=== PATIENT | female | born 2000 | race Caucasian/White ===

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

== ENCOUNTER 2021-02-13 05:29 | Outpatient (RCR) | payer MEDICAID ==
[~2021-02-13] VITALS: Ht 165 cm; Wt 97.7 kg
[~2021-02-13 05:29] MED LIST changes: +ALPR.25T PO; -ALPR0.254 PO
== END 2021-02-13 08:56 | disposition home or self-care (01) ==
LOC: PREOP 05:29
PROVIDERS: ATTEND Surgery
DX: Z01.812 Encounter for preprocedural laboratory examination (principal); R10.11 Right upper quadrant pain; Z20.822 Contact with and (suspected) exposure to COVID-19
CPT/HCPCS: 87635

== ENCOUNTER 2021-02-15 12:45 | Day surgery (SDC) | payer MEDICAID ==
[~2021-02-15] VITALS: Ht 165 cm; Wt 97.7 kg
[2021-02-15] MEDS ORDERED: LACTATED RINGERS 1,000 ML IV ONE (12:51)
[2021-02-15] MEDS ORDERED: LACTATED RINGERS 1,000 ML IV STA (12:53)
[2021-02-15] MEDS ORDERED: HURRICAINE EXT TUBE (BENZOCAINE) XX PRN (13:00)
[2021-02-15 13:07] VITALS: BP 125/83
[2021-02-15] MEDS ORDERED: proPOfol 200 MG/20 ML (DIPRIVAN) VIAL IV ONE (13:49)
[2021-02-15] MEDS ORDERED: MIDAZOLAM 2 MG/2 ML (VERSED) VIAL ONE (13:49)
--- NOTE | 2021-02-15 13:52 | Progress Note-Pre Operative ---
Pre-Operative Progress Note H&P Reviewed The H&P was reviewed, patient examined and no changes noted. Date Seen by Provider: Feb 15, 2021 Time Seen by Provider: 13:52 Date H&P Reviewed: Feb 15, 2021 Time H&P Reviewed: 13:52 Pre-Operative Diagnosis: epigastric abd pain, gerd WINIFRED BEASLEY DO Feb 15, 2021 13:52
[2021-02-15 14:10] VITALS: BP 141/72
[2021-02-15 14:15] VITALS: BP 146/66
--- NOTE | 2021-02-15 14:19 | Anesthesia-General Post-Op ---
MAC Patient Condition Mental Status/LOC: Same as Preop Cardiovascular: Satisfactory Nausea/Vomiting: Absent Respiratory: Satisfactory Pain: Controlled Complications: Absent Post Op Complications Complications None Follow Up Care/Instructions Patient Instructions None needed. Anesthesiology Discharge Order Discharge Order Patient is doing well, no complaints, stable vital signs, no apparent adverse anesthesia problems. MAIKEL MAN DO Feb 15, 2021 14:19
[2021-02-15] MEDS ORDERED: PANT40TA52 PO (14:27)
[2021-02-15] MEDS ORDERED: SUCR1TAB36 PO (14:27)
--- NOTE | 2021-02-15 14:27 | Discharge Inst-Simple/Standard ---
Discharge Inst-Standard Discharge Medications New, Converted or Re-Newed RX: Transmitted to Pharmacy Patient Instructions/Follow Up Plan of Care/Instructions/FU: 2 weeks Susan Activity as Tolerated: Yes Discharge Diet: Regular Diet (ulcer diet) WINIFRED BEASLEY DO Feb 15, 2021 14:27
[2021-02-15 14:40] VITALS: BP 133/89
[2021-02-15 14:50] VITALS: BP 146/66
--- NOTE | 2021-02-15 18:51 | OPERATIVE REPORT ---
DATE OF SERVICE: 02/15/2021 PREOPERATIVE DIAGNOSES: Gastroesophageal reflux disease, epigastric abdominal pain. POSTOPERATIVE DIAGNOSES: Small hiatal hernia, antral ulcers, reflux esophagitis. SURGEON: Winifred Davis DO ANESTHESIA: Per MDA. ESTIMATED BLOOD LOSS: None. COMPLICATIONS: None. INDICATIONS: The patient is a 20-year-old female who has been having GERD symptoms and epigastric abdominal pain. She understands risks and benefits of procedure and wishes to proceed. Consent was signed in the chart. DESCRIPTION OF PROCEDURE: The patient was taken to the endoscopy suite, placed in left lateral recumbent position. Timeout was performed. Scope was inserted in mouth, down the esophagus, stomach and into the duodenum without difficulty. There were no polyps, masses or ulcerations within the duodenum. Scope was slowly retracted back into the stomach where it was further insufflated. Significant gastritis present with multiple ulcerations present. Biopsies of the antrum were obtained. Scope was retroflexed noting a small hiatal hernia, no other pathology. Scope was returned to its normal position, slowly withdrawn to distal esophagus, changes of reflux esophagitis present, may be slight ulceration even present. Biopsy of the GE junction was obtained. Scope was then slowly retracted back until completely removed, noting no other pathology. The patient tolerated procedure well without any complications. She was taken to recovery room in stable condition. RECOMMENDATIONS: The patient will be on Protonix 40 mg b.i.d. for two weeks and then daily. We will also add Carafate 1 gram four times a day. The patient will return to clinic in two to three weeks to discuss pathology results and see how her symptoms are doing at that time. Job ID: [id number] DocumentID: [id number] Dictated Date: 02/15/2021 15:38:45 Real Estate Office Manager Date: 02/15/2021 18:51:02 Dictated By: WINIFRED DAVIS DO
== END 2021-02-15 14:50 | disposition home or self-care (01) ==
LOC: ENDO 12:45
PROVIDERS: ATTEND Surgery
DX: K29.50 Unspecified chronic gastritis without bleeding (principal); K21.00 Gastro-esophageal reflux disease with esophagitis, without bleeding; K25.9 Gastric ulcer, unspecified as acute or chronic, without hemorrhage or perforation; E66.01 Morbid (severe) obesity due to excess calories; K44.9 Diaphragmatic hernia without obstruction or gangrene; Z79.899 Other long term (current) drug therapy; Z79.51 Long term (current) use of inhaled steroids; Z79.890 Hormone replacement therapy; J45.909 Unspecified asthma, uncomplicated; Z90.49 Acquired absence of other specified parts of digestive tract; Z68.35 Body mass index [BMI] 35.0-35.9, adult

== ENCOUNTER 2021-06-24 00:06 | Emergency (ER) | payer MEDICAID ==
[~2021-06-24] VITALS: Ht 165 cm; Wt 94.0 kg
--- NOTE | 2021-06-24 00:55 | ED General ---
General Chief Complaint: Psych/Social Disorder Stated Complaint: L ARM LAC Nursing Triage Note: PT AMB TO ER WITH C/O L WRIST INJURY DUE TO CUTTING/ SELF HARM Source of Information: Patient Exam Limitations: No Limitations History of Present Illness Date Seen by Provider: Jun 24, 2021 Time Seen by Provider: 00:43 Initial Comments Here with report laceration to the left wrist after cutting herself with a scalpel. She has a long history of cutting and cut a little deep tonight. She denies suicide intent or suicidal ideations. Does have support with counselor and friends. She lives at the [facility] on [address]. Denies other injury. Unknown last tetanus. Timing/Duration: 1-3 Hours Severity: Mild Associated Systoms: No Weakness Allergies and Home Medications Allergies Coded Allergies: albuterol (Verified Allergy, Severe, DROPS O2 LEVEL, INCREASED HR, 06/03/18) Patient Home Medication List Home Medication List Reviewed: Yes Pantoprazole Sodium (Pantoprazole Sodium) 40 Mg Tablet.dr, 40 MG PO BID Prescribed by: WINIFRED BEASLEY on 02/15/21 142 Sucralfate (Carafate) 1 Gm Tablet, 1 GM PO QID Prescribed by: WINIFRED BEASLEY on 02/15/21 142 Review of Systems Review of Systems Constitutional: see HPI; No chills, No fever Respiratory: no symptoms reported Cardiovascular: no symptoms reported Skin: see HPI; No change in color; lesions Psychiatric/Neurological: Emotional Problems; Denies Numbness, Denies Paresthesia Past Xpgnpku-Afghjb-Gpllpj Hx Patient Social History Tobacco Use?: No Substance use?: No Alcohol Use?: No Pt feels they are or have been: No Immunizations Up To Date Tetanus Booster (TDap): Unknown PED Vaccines UTD: Yes Influenza Vaccine Up-to-Date: Yes; Up-to-Date First/Initial COVID19 Vaccinat: 08/10 Second COVID19 Vaccination Evan: 09/10 COVID19 Vaccine Tablet Repair: ELEN Seasonal Allergies Seasonal Allergies: Yes Past Medical History Surgery/Hospitalization HX: DEPRESSION, ANXIETY, ASTHMA Surgeries: Yes (Bilat knees, left hand; EGD) Orthopedic Respiratory: Yes Asthma Cardiac: No Neurological: Yes Headaches /Migraines Last Menstrual Period: Jun 04, 2021 Reproductive Disorders: No Female Reproductive Disorders: Denies Sexually Transmitted Disease: No HIV/AIDS: No Genitourinary: No Gastrointestinal: Yes Gastroesophageal Reflux, Hiatal Hernia, Ulcer, Gall Bladder Disease Musculoskeletal: Yes (KNEES AND HAND SURGERY) Endocrine: No HEENT: No Loss of Vision: Denies Hearing Impairment: Denies Cancer: No Psychosocial: Yes Sleep Difficulties, Anxiety Integumentary: No Blood Disorders: No Adverse Reaction/Blood Tranf: No (N/A) Family Medical History Reviewed Nursing Family Hx Abdominal aortic aneurysm 19 MOTHER (MATERNAL GREAT GRANDFATHER) Alcoholism 19 FATHER (PARTENAL GRANDFATHER AND FATHER) Arthritis 19 FATHER Asthma 19 MOTHER G8 SISTER Cardiovascular disease 19 FATHER (GRANDFATHER) 19 MOTHER (MATERNAL GRANDFATHER) Cataracts 19 MOTHER (GRANDFATHER) Completed stroke 19 FATHER (GRANDMOTHER) Deafness or hearing loss Diabetes mellitus 19 MOTHER (GRANDFATHER) Drug abuse 19 FATHER (FATHER) Glaucoma 19 FATHER (GRANDFATHER) Hypercholesterolemia 19 FATHER (GRANDMOTHER) Hypertension 19 MOTHER (AUNTS) Kidney disease 19 MOTHER (GRANDFATHER) Myocardial infarction 19 FATHER (GRANDFATHER) 19 MOTHER (GREAT GRANDPARENTS) Respiratory disorder 19 FATHER (GRANDFATHER) Thyroid disease 19 MOTHER Tuberculosis 19 FATHER (GRANDFATHER) Physical Exam Vital Signs Vital Signs - First Documented 06/24/21 00:15 Temp 37.0 Pulse 79 Resp 17 B/P (MAP) 140/85 (103) Pulse Ox 98 O2 Delivery Room Air Capillary Refill : Less Than 3 Seconds Height, Weight, BMI Height: 5'5.00" Weight: 200lbs. 0.0oz. 90.353467cj; 34.00 BMI Method:Stated General Appearance: No Apparent Distress, WD/WN Respiratory: Lungs Clear, Normal Breath Sounds Cardiovascular: Regular Rate, Rhythm, No Murmur Neurologic/Psychiatric: Alert, Oriented x3, Depressed Affect Skin: Normal Color, Warm/Dry, Other (Laceration transverse across left wrist approximately 5 cm and superficial but will need repair with bleeding controlled.) Procedures/Interventions Wound Location: Upper Extremities Other Wound Location Left wrist Wound Length (cm): 4.5 Wound's Depth, Shape: superficial Wound Explored: contaminated Irrigated w/ Saline (ccs): 50 Betadine Prep?: Yes Anesthesia: 1% Lidocaine Volume Anesthetic (ccs): 4 Wound Debrided: minimal Suture: Ethlion Suture Size: 5-0 Number of Sutures: 8 Layer Closure?: 1 Number Deep Layer Sutures: 0 Sterile Dressing Applied?: Yes Progress Cleaned and anesthetized. Closed with simple interrupted sutures. Cover with antibiotic ointment and dressing. Tolerated procedure well with no complication s. Progress/Results/Core Measures Suspected Sepsis SIRS Temperature: Pulse: 79 Respiratory Rate: 17 Blood Pressure 140 /85 Mean: 103 Results/Orders My Orders Orders - FADIA CHAVARRIA MD Lidocaine 1% Inj 20 Ml (Xylocaine 1% Inj (06/24/21 01:00) Dipht,Pertuss(Acell),Tet Adult (Boostrix (06/24/21 01:00) Vital Signs/I&O 06/24/21 00:15 Temp 37.0 Pulse 79 Resp 17 B/P (MAP) 140/85 (103) Pulse Ox 98 O2 Delivery Room Air Capillary Refill : Less Than 3 Seconds Blood Pressure Mean: 103 Progress Note : Progress Note Seen and evaluated. Tetanus updated. Laceration repair. I did talk with her at length about safety at home. I do not believe she is suicidal and she has good support. We did discuss cutting and other alternatives which she knows and understands. Discharged home with return precautions. Patient verbalized understanding of instructions and agreement with plan. She has support person with her who is also one of our techs. 0125: Suture complete. Patient continues to deny suicidal ideations and I do believe she has good support. Discharged home. Departure Impression Primary Impression: Laceration of left wrist Qualified Codes: S61.512A - Laceration without foreign body of left wrist, initial encounter Disposition: 01 HOME, SELF-CARE Condition: Improved Departure-Patient Inst. Decision time for Depature: 01:25 Referrals: [facility] (PCP/Family) Primary Care Physician Patient Instructions: Laceration Repair With Stitches ED Add. Discharge Instructions: All discharge instructions reviewed with patient and/or family. Voiced understanding. Sutures out in 7 to 10 days. Use antibiotic ointment and dressing over wound changing it twice daily. You may wash the wound gently and pat it dry but do not soak the wound in any body of water. Return for worse pain, swelling, red streaks up the arm, foul-smelling drainage or other concerns as needed. Return for thoughts of self-harm or uncontrolled depression. Follow-up with your counselor on Friday. Use all other supportive measures including returning to the emergency department if needed instead of cutting behavior. FADIA CHAVARRIA MD Jun 24, 2021 00:55
[2021-06-24] MEDS ORDERED: TETANUS,DIPTH,PERTUSS P/F (BOOSTRIX) 0.5 ML VIAL IM ONE (01:00)
[2021-06-24] MEDS ORDERED: LIDOCAINE 1% INJ 20 ML 20 ML VIAL INJ ONE (01:00)
[2021-06-24 01:35] VITALS: BP 132/81
== END 2021-06-24 01:36 | disposition home or self-care (01) ==
LOC: EDUNIT# 00:06 → ER 00:08
DX: S61.512A Laceration without foreign body of left wrist, initial encounter (principal); J45.909 Unspecified asthma, uncomplicated; K21.9 Gastro-esophageal reflux disease without esophagitis; Z23 Encounter for immunization; Z79.899 Other long term (current) drug therapy; X78.8XXA Intentional self-harm by other sharp object, initial encounter
CPT/HCPCS: 12002; 12032; 90715

== ENCOUNTER 2021-07-15 05:53 | Emergency (ER) | payer MEDICAID ==
[~2021-07-15] VITALS: Ht 165 cm; Wt 97.5 kg
[2021-07-15] MEDS ORDERED: ALPR0.5T7 (06:13)
[2021-07-15] MEDS ORDERED: FLUO10CA33 (06:13)
[2021-07-15] MEDS ORDERED: IBUP-1780 PO (06:23)
[2021-07-15] MEDS ORDERED: BUTA-249 PO (06:23)
--- NOTE | 2021-07-15 06:23 | ED Headache ---
General Chief Complaint: Head/Cervical Problems Stated Complaint: RAMOS Nursing Triage Note: C/O RIGHT SIDED HEADACHE X1 DAY. REPORTS SIMILIAR TO PREVIOUS HEADACHES. Allergies and Home Medications Allergies Coded Allergies: albuterol (Verified Allergy, Severe, DROPS O2 LEVEL, INCREASED HR, 06/03/18) Patient Home Medication List Alprazolam (Alprazolam) 0.5 Mg Tablet, (Reported) Entered as Reported by: ALDO CAZARES on 07/15/21612 Last Action: New Order Fluoxetine HCl (Fluoxetine HCl) 10 Mg Capsule, (Reported) Entered as Reported by: ALDO CAZARES on 07/15/21612 Last Action: New Order Discontinued Medications Pantoprazole Sodium (Pantoprazole Sodium) 40 Mg Tablet.dr, 40 MG PO BID Discontinued Reason: No Longer Taking Prescribed by: WINIFRED BEASLEY on 02/15/211426 Last Action: Discontinued Sucralfate (Carafate) 1 Gm Tablet, 1 GM PO QID Discontinued Reason: No Longer Taking Prescribed by: WINIFRED BEASLEY on 02/15/211426 Last Action: Discontinued Past Ntcqxsj-Ikcupa-Mxbgeg Hx Patient Social History Tobacco Use?: No Substance use?: No Alcohol Use?: No Pt feels they are or have been: No Immunizations Up To Date Tetanus Booster (TDap): Unknown PED Vaccines UTD: Yes First/Initial COVID19 Vaccinat: 08/10 Second COVID19 Vaccination Evan: 09/10 COVID19 Vaccine Senior Quality Analyst: ELEN Seasonal Allergies Seasonal Allergies: Yes Past Medical History Surgery/Hospitalization HX: DEPRESSION, ANXIETY, ASTHMA, HEADACHES, GERD Surgeries: Yes (Bilat knees, left hand; EGD) Orthopedic Respiratory: Yes Asthma Cardiac: No Neurological: Yes Headaches /Migraines Reproductive Disorders: No Female Reproductive Disorders: Denies Sexually Transmitted Disease: No HIV/AIDS: No Genitourinary: No Gastrointestinal: Yes Gastroesophageal Reflux, Hiatal Hernia, Ulcer, Gall Bladder Disease Musculoskeletal: Yes (KNEES AND HAND SURGERY) Endocrine: No HEENT: No Loss of Vision: Denies Hearing Impairment: Denies Cancer: No Psychosocial: Yes Sleep Difficulties, Anxiety Integumentary: No Blood Disorders: No Adverse Reaction/Blood Tranf: No (N/A) Family Medical History Abdominal aortic aneurysm 19 MOTHER (MATERNAL GREAT GRANDFATHER) Alcoholism 19 FATHER (PARTENAL GRANDFATHER AND FATHER) Arthritis 19 FATHER Asthma 19 MOTHER G8 SISTER Cardiovascular disease 19 FATHER (GRANDFATHER) 19 MOTHER (MATERNAL GRANDFATHER) Cataracts 19 MOTHER (GRANDFATHER) Completed stroke 19 FATHER (GRANDMOTHER) Deafness or hearing loss Diabetes mellitus 19 MOTHER (GRANDFATHER) Drug abuse 19 FATHER (FATHER) Glaucoma 19 FATHER (GRANDFATHER) Hypercholesterolemia 19 FATHER (GRANDMOTHER) Hypertension 19 MOTHER (AUNTS) Kidney disease 19 MOTHER (GRANDFATHER) Myocardial infarction 19 FATHER (GRANDFATHER) 19 MOTHER (GREAT GRANDPARENTS) Respiratory disorder 19 FATHER (GRANDFATHER) Thyroid disease 19 MOTHER Tuberculosis 19 FATHER (GRANDFATHER) Physical Exam Vital Signs Vital Signs - First Documented 07/15/21 06:08 Temp 36.2 Pulse 79 Resp 16 B/P (MAP) 136/95 (109) Pulse Ox 98 O2 Delivery Room Air Capillary Refill : Less Than 3 Seconds Height, Weight, BMI Height: 5'5.00" Weight: 200lbs. 0.0oz. 90.959643by; 35.00 BMI Method:Stated Procedures/Interventions Suture Size: 5-0 Progress/Results/Core Measures Results/Orders Vital Signs/I&O 07/15/21 06:08 Temp 36.2 Pulse 79 Resp 16 B/P (MAP) 136/95 (109) Pulse Ox 98 O2 Delivery Room Air Blood Pressure Mean: 109 Departure Impression Primary Impression: Chronic daily headache Disposition: 01 HOME, SELF-CARE Condition: Stable Departure-Patient Inst. Decision time for Depature: 06:22 Referrals: [facility] (PCP/Family) Primary Care Physician Patient Instructions: Headache, Adult (DC) Add. Discharge Instructions: HOME, REST LOTS OF CLEAR LIQUIDS FOLLOW UP WITH DR. MEDINA THIS WEEK FOR FURTHER CARE All discharge instructions reviewed with patient and/or family. Voiced understanding. Scripts Ibuprofen (Ibuprofen) 800 Mg Tablet 800 MG PO Q6H PRN for PAIN-MILD, #20 TAB Prov: TATIANA BAHENAA K DO 07/15/21 Butalb/Acetaminophen/Caffeine (Esgic 50-325-40 mg Tablet) 1 Each Tablet 1-2 EACH PO Q6, #12 TAB Prov: SHRUTITATIANAA K DO 07/15/21 SHRUTITATIANAA K DO Jul 15, 2021 06:23
[2021-07-15] MEDS ORDERED: KETOROLAC 60 MG/2 ML VIAL IM ONE (06:30)
[2021-07-15 06:37] VITALS: BP 124/81
[2021-07-16] MEDS ORDERED: ONDA4TAB11 SL ×2 (02:00→02:53)
== END 2021-07-15 06:39 | disposition home or self-care (01) ==
LOC: EDUNIT# 05:53 → ER 05:57
DX: R51.9 Headache, unspecified (principal); F41.9 Anxiety disorder, unspecified; F32.9 Major depressive disorder, single episode, unspecified; K21.9 Gastro-esophageal reflux disease without esophagitis; J45.909 Unspecified asthma, uncomplicated; Z79.899 Other long term (current) drug therapy
CPT/HCPCS: 99284

== ENCOUNTER 2021-07-15 23:45 | Emergency (ER) | payer MEDICAID ==
[~2021-07-15] VITALS: Ht 165 cm; Wt 97.5 kg
[~2021-07-15 23:45] MED LIST changes: +ALPR0.5T7; +BUTA-249 PO; +FLUO10CA33; +IBUP-1780 PO
[2021-07-16] MEDS ORDERED: PROMETHAZINE INJ 25 MG/ML (PHENERGAN) AMP IVP ONE (01:45)
[2021-07-16] MEDS ORDERED: KETOROLAC 30 MG/ML VIAL IVP ONE (01:45)
[2021-07-16] MEDS ORDERED: LACTATED RINGERS 1,000 ML IV ONE (01:45)
[2021-07-16] MEDS ORDERED: ONDA4TAB11 SL ×2 (02:00→02:53)
--- NOTE | 2021-07-16 02:01 | ED Headache ---
General Chief Complaint: Head/Cervical Problems Stated Complaint: HEADACHE Nursing Triage Note: PT AMB TO ED BY POV WITH C/O RAMOS. PT WAS SEEN AND TREATED HERE THIS AM FOR RAMOS. PT WENT TO WORK AND RAMOS CONTINUED SO SHE CAME IN. PT TOOK IBUPROFEN AT 1700 WITH NO RELIEF.. Source: patient Exam Limitations: no limitations History of Present Illness Date Seen by Provider: Jul 16, 2021 Time Seen by Provider: 01:40 Initial Comments This 21-year-old young lady presents to the emergency room with persistent headache throughout the day today accompanied by nausea. She has some associated stuttering of her speech which fatigues as she talks more. She also reports feeling lightheaded upon standing. She was seen in the ER yesterday and treated with a Toradol injection. Patient was noted to be smiling and giggling in conversation. Stated pain level was 8/10 initially. Allergies and Home Medications Allergies Coded Allergies: albuterol (Verified Allergy, Severe, DROPS O2 LEVEL, INCREASED HR, 06/03/18) Patient Home Medication List Home Medication List Reviewed: Yes Alprazolam (Alprazolam) 0.5 Mg Tablet, (Reported) Entered as Reported by: ALDO CAZARES on 07/15/21612 Butalb/Acetaminophen/Caffeine (Esgic 50-325-40 mg Tablet) 1 Each Tablet, 1-2 EACH PO Q6 Prescribed by: JOSE ANTONIO BAHENA on 07/15/21622 Fluoxetine HCl (Fluoxetine HCl) 10 Mg Capsule, (Reported) Entered as Reported by: ALDO CAZARES on 07/15/21612 Ibuprofen (Ibuprofen) 800 Mg Tablet, 800 MG PO Q6H PRN for PAIN-MILD Prescribed by: JOSE ANTONIO BAHENA on 07/15/21622 Ondansetron (Ondansetron Odt) 4 Mg Tab.rapdis, 4 MG SL Q4H PRN for NAUSEA/VOMITING Prescribed by: SADA PETERS on 07/16/21 0253 Discontinued Medications Pantoprazole Sodium (Pantoprazole Sodium) 40 Mg Tablet.dr, 40 MG PO BID Discontinued Reason: No Longer Taking Prescribed by: WINIFRED BEASLEY on 02/15/21 142 Sucralfate (Carafate) 1 Gm Tablet, 1 GM PO QID Discontinued Reason: No Longer Taking Prescribed by: WINIFRED BEASLEY on 02/15/211426 Review of Systems Review of Systems Constitutional: no symptoms reported Eyes: No Symptoms Reported Ears, Nose, Mouth, Throat: no symptoms reported Respiratory: no symptoms reported Cardiovascular: no symptoms reported Gastrointestinal: see HPI Genitourinary: no symptoms reported : No Musculoskeletal: no symptoms reported Skin: no symptoms reported Psychiatric/Neurological: See HPI Past Kzczzaw-Vfkgfj-Kjejok Hx Patient Social History Tobacco Use?: No Use of E-Cig and/or Vaping dev: No Substance use?: No Alcohol Use?: No Pt feels they are or have been: No Immunizations Up To Date Tetanus Booster (TDap): Unknown PED Vaccines UTD: Yes Influenza Vaccine Up-to-Date: Yes; Up-to-Date First/Initial COVID19 Vaccinat: 08/10 Second COVID19 Vaccination Evan: 09/10 Third COVID19 Vaccination Date: 05/18/21 COVID19 Vaccine Interventional Radiology Technologist: Laura Sapiens Seasonal Allergies Seasonal Allergies: Yes Past Medical History Surgery/Hospitalization HX: DEPRESSION, ANXIETY, ASTHMA, HEADACHES, GERD Surgeries: Yes (Bilat knees, left hand; EGD) Orthopedic Respiratory: Yes Asthma Cardiac: No Neurological: Yes Headaches /Migraines Last Menstrual Period: Jul 05, 2021 Reproductive Disorders: No Female Reproductive Disorders: Denies Sexually Transmitted Disease: No HIV/AIDS: No Genitourinary: No Gastrointestinal: Yes Gastroesophageal Reflux, Hiatal Hernia, Ulcer, Gall Bladder Disease Musculoskeletal: Yes (KNEES AND HAND SURGERY) Endocrine: No HEENT: No Loss of Vision: Denies Hearing Impairment: Denies Cancer: No Psychosocial: Yes Sleep Difficulties, Anxiety Integumentary: No Blood Disorders: No Adverse Reaction/Blood Tranf: No (N/A) Family Medical History Abdominal aortic aneurysm 19 MOTHER (MATERNAL GREAT GRANDFATHER) Alcoholism 19 FATHER (PARTENAL GRANDFATHER AND FATHER) Arthritis 19 FATHER Asthma 19 MOTHER G8 SISTER Cardiovascular disease 19 FATHER (GRANDFATHER) 19 MOTHER (MATERNAL GRANDFATHER) Cataracts 19 MOTHER (GRANDFATHER) Completed stroke 19 FATHER (GRANDMOTHER) Deafness or hearing loss Diabetes mellitus 19 MOTHER (GRANDFATHER) Drug abuse 19 FATHER (FATHER) Glaucoma 19 FATHER (GRANDFATHER) Hypercholesterolemia 19 FATHER (GRANDMOTHER) Hypertension 19 MOTHER (AUNTS) Kidney disease 19 MOTHER (GRANDFATHER) Myocardial infarction 19 FATHER (GRANDFATHER) 19 MOTHER (GREAT GRANDPARENTS) Respiratory disorder 19 FATHER (GRANDFATHER) Thyroid disease 19 MOTHER Tuberculosis 19 FATHER (GRANDFATHER) Physical Exam Vital Signs Vital Signs - First Documented 07/16/21 00:04 Temp 37.0 Pulse 83 Resp 18 B/P (MAP) 123/85 (98) Pulse Ox 100 O2 Delivery Room Air Capillary Refill : Less Than 3 Seconds Height, Weight, BMI Height: 5'5.00" Weight: 200lbs. 0.0oz. 90.040377dm; 35.00 BMI Method:Stated General Appearance: WD/WN, no apparent distress HEENT: PERRL/EOMI, normal ENT inspection Neck: normal inspection Cardiovascular: regular rate, rhythm, no edema, no murmur Respiratory: normal breath sounds, no respiratory distress Extremities: normal inspection Psychiatric: alert, oriented x 3 Crainal Nerves: normal hearing, PERRL, abnormal speech (Stuttering of the speech is fatigable the more she talks, perhaps voluntary) Coordination/Gait: normal finger to nose Motor/Sensory: no motor deficit, no sensory deficit Skin: normal color, warm/dry Procedures/Interventions Suture Size: 5-0 Progress/Results/Core Measures Results/Orders Lab Results Laboratory Tests Test 07/16/21 02:05 Range/Units Sodium Level 143 135-145 MMOL/L Potassium Level 3.6 3.6-5.0 MMOL/L Chloride Level 107 98-107 MMOL/L Carbon Dioxide Level 23 21-32 MMOL/L Anion Gap 13 5-14 MMOL/L Blood Urea Nitrogen 15 7-18 MG/DL Creatinine 0.92 0.60-1.30 MG/DL Estimat Glomerular Filtration Rate 78 BUN/Creatinine Ratio 16 Glucose Level 101 70-105 MG/DL Calcium Level 9.3 8.5-10.1 MG/DL Serum Test, Qualitative NEGATIVE NEGATIVE My Orders Orders - SADA COLBY MD Ed Iv/Invasive Line Start (07/16/21 01:44) Lactated Ringers (Lr 1000 Ml Iv Solution (07/16/21 01:45) Ketorolac Injection (Toradol Injection) (07/16/21 01:45) Promethazine Injection (Phenergan Injec (07/16/21 01:45) Basic Metabolic Panel (07/16/21 01:44) Hcg,Qualitative Serum (07/16/21 01:44) Medications Given in ED Vital Signs/I&O 07/16/21 07/16/21 00:04 02:54 Temp 37.0 Pulse 83 79 Resp 18 16 B/P (MAP) 123/85 (98) 122/79 Pulse Ox 100 100 O2 Delivery Room Air Room Air Blood Pressure Mean: 98 Progress Progress Note : Progress Note Patient was treated with IV fluids, Phenergan, and Toradol with improvement of symptoms. Departure Impression Primary Impression: Recurrent headache Additional Impressions: Nausea Lightheadedness Disposition: 01 HOME, SELF-CARE Condition: Improved Departure-Patient Inst. Decision time for Depature: 01:59 Referrals: [facility] (PCP/Family) Primary Care Physician Patient Instructions: Headache, Adult (DC) Add. Discharge Instructions: Drink plenty of clear liquids to stay well-hydrated. For further headache treatment you may take ibuprofen up to 600 mg every 6 hours as needed and/or Tylenol (acetaminophen) up to 1000 mg every 6 hours as needed. Use Zofran (ondansetron) as prescribed for nausea and vomiting. Follow-up with your primary care provider to discuss further headache treatment and evaluation. Return to the ER if you have worsening symptoms. Call with questions or concerns. All discharge instructions reviewed with patient and/or family. Voiced understanding. Scripts Ondansetron (Ondansetron Odt) 4 Mg Tab.rapdis 4 MG SL Q4H PRN for NAUSEA/VOMITING, #10 TAB Prov: SADA COLBY MD 07/16/21 SADA COLBY MD Jul 16, 2021 02:01
[2021-07-16 02:22] LABS: POTASSIUM 3.6 MMOL/L (3.6-5.0)
[2021-07-16 02:23] LABS: CALCIUM 9.3 MG/DL (8.5-10.1)
[2021-07-16 02:27] LABS: CREATININE SERUM 0.92 MG/DL (0.60-1.30)
[2021-07-16 02:54] VITALS: BP 122/79
== END 2021-07-16 02:54 | disposition home or self-care (01) ==
LOC: EDUNIT# 23:45 → ER 23:46
DX: R51.9 Headache, unspecified (principal); R42 Dizziness and giddiness; F41.9 Anxiety disorder, unspecified; F32.9 Major depressive disorder, single episode, unspecified; K21.9 Gastro-esophageal reflux disease without esophagitis; J45.909 Unspecified asthma, uncomplicated; Z79.899 Other long term (current) drug therapy; Z32.02 Encounter for pregnancy test, result negative
CPT/HCPCS: 36415; 80048; 84703

== ENCOUNTER 2021-07-18 14:21 | Emergency (ER) | payer MEDICAID ==
[~2021-07-18] VITALS: Ht 165 cm; Wt 99.0 kg
[~2021-07-18 14:21] MED LIST changes: +ONDA4TAB11 SL
[2021-07-18 15:10] LABS: BASOPHILS # (AUTO) 0.1 10^3/uL (0.0-0.1); BASOPHILS % (AUTO) 1 % (0-10); EOSINOPHILS # (AUTO) 0.1 10^3/uL (0.0-0.3); EOSINOPHILS % (AUTO) 1 % (0-10); HEMATOCRIT 41 % (35-52); HEMOGLOBIN 13.4 g/dL (11.5-16.0); LYMPHOCYTES # (AUTO) 1.7 X 10^3 (1.0-4.0); LYMPHOCYTES % (AUTO) 18 % (12-44); MEAN CORPUSCULAR HEMOGLOBIN 28 pg (25-34); MEAN CORPUSCULAR HGB CONC 33 g/dL (32-36); MEAN CORPUSCULAR VOLUME 86 fL (80-99); MEAN PLATELET VOLUME 11.3 fL (9.0-12.2); MONOCYTES # (AUTO) 0.5 X 10^3 (0.0-1.0); MONOCYTES % (AUTO) 5 % (0-12); NEUTROPHILS # (AUTO) 7.4 X 10^3 (1.8-7.8); NEUTROPHILS % (AUTO) 75 % (42-75); PLATELET COUNT 365 10^3/uL (130-400); WHITE BLOOD COUNT 9.9 10^3/uL (4.3-11.0)
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
[2021-07-18 15:19] LABS: ALBUMIN 4.5 GM/DL (3.2-4.5); POTASSIUM 3.7 MMOL/L (3.6-5.0)
[2021-07-18 15:21] LABS: CALCIUM 9.4 MG/DL (8.5-10.1)
[2021-07-18 15:22] LABS: TOTAL PROTEIN 8.2 GM/DL (6.4-8.2)
[2021-07-18 15:24] LABS: BILIRUBIN,TOTAL 0.4 MG/DL (0.1-1.0)
[2021-07-18 15:26] LABS: CREATININE SERUM 0.84 MG/DL (0.60-1.30)
--- NOTE | 2021-07-18 15:29 | Diagnostic Imaging Report ---
PROCEDURE: CT head without contrast. TECHNIQUE: Multiple contiguous axial images were obtained through the brain without the use of intravenous contrast. Auto Exposure Controls were utilized during the CT exam to meet ALARA standards for radiation dose reduction. INDICATION: Difficulty speaking and writing. COMPARISON: No prior studies are available for comparison. FINDINGS: Ventricles and sulci are within normal limits. No sulcal effacement or midline shift is identified. No acute intra-axial or extra-axial hemorrhage is detected. Cisterns are patent. Visualized paranasal sinuses are clear. IMPRESSION: No acute intracranial process is detected. Dictated by: Dictated on workstation # [id number]
[2021-07-18] MEDS ORDERED: HOLD METFORMIN - RECEIVED CONTRAST 20 ML VIAL IV SCH (15:45)
[2021-07-18] MEDS ORDERED: IOHEXOL 350 MG/ML 100 ML (OMNIPAQUE 350) VIAL IV ONE (15:45)
[2021-07-18] MEDS ORDERED: diphenhydrAMINE 50 MG/ML INJ (BENADRYL) IV ONE (15:45)
[2021-07-18] MEDS ORDERED: METOCLOPRAMIDE INJ 10 MG/2 ML (REGLAN) IVP ONE (15:45)
[2021-07-18] MEDS ORDERED: NS 100 ML (IVPB) BAG IV ONE (15:45)
[2021-07-18] MEDS ORDERED: KETOROLAC 30 MG/ML VIAL IVP ONE (15:45)
[2021-07-18 15:55] LABS: HCG,QUALITATIVE URINE NEGATIVE (NEGATIVE)
[2021-07-18 16:03] LABS: AMPHETAMINE SCREEN, URINE NEGATIVE (NEGATIVE); BARBITURATE SCREEN URINE POSITIVE (NEGATIVE); BENZODIAZEPINES SCREEN URINE NEGATIVE (NEGATIVE); CANNABINOID SCREEN, URINE NEGATIVE (NEGATIVE); COCAINE SCREEN URINE NEGATIVE (NEGATIVE); METHADONE STAT NEGATIVE (NEGATIVE); METHAMPHETAMINE SCREEN URINE S NEGATIVE (NEGATIVE); OPIATE SCREEN URINE NEGATIVE (NEGATIVE); OXYCODONE STAT NEGATIVE (NEGATIVE); PROPOXYPHENE STAT NEGATIVE (NEGATIVE); TRICYCLIC ANTIDEPRESSANTS SCRE NEGATIVE (NEGATIVE)
--- NOTE | 2021-07-18 16:38 | Diagnostic Imaging Report ---
PROCEDURE: CT angiography of the head and CT angiography of the neck with and without contrast. TECHNIQUE: Contiguous noncontrast images were obtained from the skull base through the vertex. After intravenous contrast administration, helical CT angiography of the neck was performed. Source data was reformatted into 3D MIP projections. Delayed post contrast acquisition was also obtained. Auto Exposure Controls were utilized during the CT exam to meet ALARA standards for radiation dose reduction. INDICATION: Right weakness. FINDINGS: There is a normal three-vessel branching pattern arising from the aortic arch. The common carotid and internal carotid arteries are widely patent throughout the neck. The vertebral arteries are also widely patent with co-dominance. No intimal abnormality, aneurysm, or stenosis is identified. The anterior, middle, and posterior cerebral arteries are widely patent without filling defect, stenosis, or occlusion. There is no evidence of aneurysm or vascular malformation. No abnormal contrast enhancement is seen in the brain parenchyma. IMPRESSION: Unremarkable CTA of the head and neck without great vessel abnormality detected. Dictated by: Dictated on workstation # [id number]
[2021-07-18 17:38] VITALS: BP 124/81
== END 2021-07-18 17:38 | disposition home or self-care (01) ==
LOC: EDUNIT# 14:21 → ER 14:23
DX: F44.4 Conversion disorder with motor symptom or deficit (principal); G43.909 Migraine, unspecified, not intractable, without status migrainosus; F41.9 Anxiety disorder, unspecified; F32.9 Major depressive disorder, single episode, unspecified; J45.909 Unspecified asthma, uncomplicated; Z79.899 Other long term (current) drug therapy; Z32.02 Encounter for pregnancy test, result negative
CPT/HCPCS: 36415; 70450; 70496; 70498; 80053; 80306; 84703; 85025; 85610; 85730; 93005

== ENCOUNTER 2021-09-20 19:25 | Emergency (ER) | payer MEDICAID ==
[~2021-09-20] VITALS: Ht 165.1 cm; Wt 96.6 kg
--- NOTE | 2021-09-20 19:45 | ED Psychosocial ---
General Chief Complaint: Overdose Stated Complaint: OVERDOSE Source: patient, EMS Exam Limitations: no limitations (NICHOLAS JOHNSON MD) History of Present Illness Date Seen by Provider: Sep 20, 2021 Time Seen by Provider: 19:31 Initial Comments Patient is a 21-year-old female who presents by EMS chief complaint overdose. Patient was found by a friend, admitted that she had "done something bad". Friend noted multiple empty pill bottles. Ambulance was called. Patient states that she has been thinking about suicide for a long time. She last saw her therapist about a week ago. She states she did have a plan in July but someone found her. She has been inpatient at [facility] in the past. She states she has a history of cutting. States that she had multiple triggers this evening. Denies recent illnesses. No current complaints. States she is not suicidal at this moment. EMS brought multiple pill bottles to include recent prescriptions filled on August 29 of 100 mg trazodone tablets #30, 40 mg fluoxetine tablets #30, Prazosin 0.2 mg tablets #30. Patient also had empty pill bottles for ibuprofen, Ativan, older pill bottles of fluoxetine and trazodone. Patient is unsure of how many pills she actually took., She is also not certain of the time of ingestion. EMS did place an NG tube prior to arrival. This was removed at arrival. Timing/Duration: other (unknown) Associated Symptoms: ingestion (suicidal) (NICHOLAS JOHNSON MD) Allergies and Home Medications Allergies Coded Allergies: albuterol (Verified Allergy, Severe, DROPS O2 LEVEL, INCREASED HR, 06/03/18) Patient Home Medication List Home Medication List Reviewed: Yes (NICHOLAS JOHNSON MD) Alprazolam (Alprazolam) 0.5 Mg Tablet, (Reported) Entered as Reported by: ALDO CAZARES on 07/15/21612 Butalb/Acetaminophen/Caffeine (Esgic 50-325-40 mg Tablet) 1 Each Tablet, 1-2 EACH PO Q6 Prescribed by: JOSE ANTONIO BAHENA on 07/15/21622 Fluoxetine HCl (Fluoxetine HCl) 10 Mg Capsule, (Reported) Entered as Reported by: ALDO CAZARES on 07/15/21612 Ibuprofen (Ibuprofen) 800 Mg Tablet, 800 MG PO Q6H PRN for PAIN-MILD Prescribed by: JOSE ANTONIO BAHENA on 07/15/21 0623 Ondansetron (Ondansetron Odt) 4 Mg Tab.rapdis, 4 MG SL Q4H PRN for NAUSEA/VOMITING Prescribed by: SADA PETERS on 07/16/21 0253 Review of Systems Constitutional: see HPI EENTM: no symptoms reported Respiratory: no symptoms reported Cardiovascular: no symptoms reported Gastrointestinal: vomiting Genitourinary: no symptoms reported : No LMP: Sep 12, 2021 Musculoskeletal: no symptoms reported Skin: no symptoms reported Psychiatric/Neurological: Depressed, Emotional Problems (NICHOLAS JOHNSON MD) All Other Systems Reviewed Negative Unless Noted: Yes (NICHOLAS JOHNSON MD) Past Pcrjkpf-Upolhk-Vozkxo Hx Immunizations Up To Date Tetanus Booster (TDap): Unknown PED Vaccines UTD: Yes First/Initial COVID19 Vaccinat: 08/10 Second COVID19 Vaccination Evan: 09/10 Third COVID19 Vaccination Date: 05/18/21 (NICHOLAS JOHNSON MD) Seasonal Allergies Seasonal Allergies: Yes (NICHOLAS JOHNSON MD) Past Medical History Surgery/Hospitalization HX: DEPRESSION, ANXIETY, ASTHMA, HEADACHES, GERD Surgeries: Yes (Bilat knees, left hand; EGD) Orthopedic Respiratory: Yes Asthma Cardiac: No Neurological: Yes Headaches /Migraines Reproductive Disorders: No Female Reproductive Disorders: Denies Sexually Transmitted Disease: No HIV/AIDS: No Genitourinary: No Gastrointestinal: Yes Gastroesophageal Reflux, Hiatal Hernia, Ulcer, Gall Bladder Disease Musculoskeletal: Yes (KNEES AND HAND SURGERY) Endocrine: No HEENT: No Loss of Vision: Denies Hearing Impairment: Denies Cancer: No Psychosocial: Yes Sleep Difficulties, Anxiety Integumentary: No Blood Disorders: No Adverse Reaction/Blood Tranf: No (N/A) (NICHOLAS JOHNSON MD) Family Medical History Abdominal aortic aneurysm 19 MOTHER (MATERNAL GREAT GRANDFATHER) Alcoholism 19 FATHER (PARTENAL GRANDFATHER AND FATHER) Arthritis 19 FATHER Asthma 19 MOTHER G8 SISTER Cardiovascular disease 19 FATHER (GRANDFATHER) 19 MOTHER (MATERNAL GRANDFATHER) Cataracts 19 MOTHER (GRANDFATHER) Completed stroke 19 FATHER (GRANDMOTHER) Deafness or hearing loss Diabetes mellitus 19 MOTHER (GRANDFATHER) Drug abuse 19 FATHER (FATHER) Glaucoma 19 FATHER (GRANDFATHER) Hypercholesterolemia 19 FATHER (GRANDMOTHER) Hypertension 19 MOTHER (AUNTS) Kidney disease 19 MOTHER (GRANDFATHER) Myocardial infarction 19 FATHER (GRANDFATHER) 19 MOTHER (GREAT GRANDPARENTS) Respiratory disorder 19 FATHER (GRANDFATHER) Thyroid disease 19 MOTHER Tuberculosis 19 FATHER (GRANDFATHER) Physical Exam Vital Signs - First Documented 09/20/21 19:28 Pulse 96 Resp 12 B/P (MAP) 118/69 (85) Pulse Ox 100 O2 Delivery Room Air (REED ISABEL) Capillary Refill : (NICHOLAS JOHNSON MD) Height, Weight, BMI Height: 5'5.00" Weight: 200lbs. 0.0oz. 90.450999ea; 36.00 BMI Method:Stated General Appearance: WD/WN, no apparent distress Respiratory: lungs clear, normal breath sounds, no respiratory distress, no accessory muscle use Cardiovascular: regular rate, rhythm (60's) Gastrointestinal: normal bowel sounds, non tender, soft Extremities: normal range of motion, normal inspection Neurologic/Psychiatric: alert, oriented x 3 Skin: normal color, warm/dry (NICHOLAS JOHNSON MD) Procedures/Interventions Suture Size: 5-0 (NICHOLAS JOHNSON MD) Progress/Results/Core Measures Results/Orders Lab Results Laboratory Tests Test 09/20/21 19:31 09/20/21 20:42 09/20/21 21:46 09/21/21 01:40 Range/Units White Blood Count 9.9 4.3-11.0 10^3/uL Red Blood Count 4.59 3.80-5.11 10^6/uL Hemoglobin 12.8 11.5-16.0 g/dL Hematocrit 40 35-52 % Mean Corpuscular Volume 88 80-99 fL Mean Corpuscular Hemoglobin 28 25-34 pg Mean Corpuscular Hemoglobin Concent 32 32-36 g/dL Red Cell Distribution Width 13.2 10.0-14.5 % Platelet Count 284 130-400 10^3/uL Mean Platelet Volume 12.1 9.0-12.2 fL Immature Granulocyte % (Auto) 0 % Neutrophils (%) (Auto) 62 42-75 % Lymphocytes (%) (Auto) 30 12-44 % Monocytes (%) (Auto) 7 0-12 % Eosinophils (%) (Auto) 1 0-10 % Basophils (%) (Auto) 1 0-10 % Neutrophils # (Auto) 6.1 1.8-7.8 10^3/uL Lymphocytes # (Auto) 3.0 1.0-4.0 10^3/uL Monocytes # (Auto) 0.7 0.0-1.0 10^3/uL Eosinophils # (Auto) 0.1 0.0-0.3 10^3/uL Basophils # (Auto) 0.1 0.0-0.1 10^3/uL Immature Granulocyte # (Auto) 0.0 0.0-0.1 10^3/uL Sodium Level 142 141 135-145 MMOL/L Potassium Level 3.4 L 3.8 3.6-5.0 MMOL/L Chloride Level 110 H 112 H 98-107 MMOL/L Carbon Dioxide Level 19 L 18 L 21-32 MMOL/L Anion Gap 13 11 5-14 MMOL/L Blood Urea Nitrogen 14 12 7-18 MG/DL Creatinine 0.91 0.78 0.60-1.30 MG/DL Estimat Glomerular Filtration Rate 93 111 BUN/Creatinine Ratio 15 15 Glucose Level 98 89 70-105 MG/DL Calcium Level 9.4 8.5 8.5-10.1 MG/DL Corrected Calcium 9.0 8.5-10.1 MG/DL Magnesium Level 2.1 2.1 1.6-2.4 MG/DL Total Bilirubin 0.5 0.1-1.0 MG/DL Aspartate Amino Transf (AST/SGOT) 20 5-34 U/L Alanine Aminotransferase (ALT/SGPT) 17 0-55 U/L Alkaline Phosphatase 60 40-136 U/L Total Protein 7.8 6.4-8.2 GM/DL Albumin 4.5 3.2-4.5 GM/DL Serum Test, Qualitative NEGATIVE NEGATIVE Salicylates Level < 5.0 L 5.0-20.0 MG/DL Acetaminophen Level < 10 L 10-30 UG/ML Serum Alcohol < 10 <10 MG/DL Blood Gas Puncture Site L RAD Blood Gas Patient Temperature 36.4 Arterial Blood pH 7.38 7.37-7.43 Arterial Blood Partial Pressure CO2 41 35-45 MMHG Arterial Blood Partial Pressure O2 83 79-93 MMHG Arterial Blood HCO3 24 23-27 MMOL/L Arterial Blood Total CO2 25.2 21.0-31.0 MMOL/L Arterial Blood Oxygen Saturation 97 94-100 % Arterial Blood Base Excess -0.7 -2.5-2.5 MMOL/L Raghav Test YES-POS Blood Gas Ventilator Setting NO Blood Gas Inspired Oxygen ROOM AIR Urine Color YELLOW Urine Clarity SL CLOUDY Urine pH 6.0 5-9 Urine Specific [place] 1.025 H 1.016-1.022 Urine Protein TRACE H NEGATIVE Urine Glucose (UA) NEGATIVE NEGATIVE Urine Ketones TRACE H NEGATIVE Urine Nitrite NEGATIVE NEGATIVE Urine Bilirubin NEGATIVE NEGATIVE Urine Urobilinogen 0.2 < = 1.0 MG/DL Urine Leukocyte Esterase TRACE H NEGATIVE Urine RBC (Auto) 1+ H NEGATIVE Urine RBC 2-5 H /HPF Urine WBC 10-25 H /HPF Urine Squamous Epithelial Cells 2-5 /HPF Urine Crystals NONE /LPF Urine Bacteria LARGE H /HPF Urine Casts NONE /LPF Urine Mucus SMALL H /LPF Urine Culture Indicated YES Urine Opiates Screen NEGATIVE NEGATIVE Urine Oxycodone Screen NEGATIVE NEGATIVE Urine Methadone Screen NEGATIVE NEGATIVE Urine Propoxyphene Screen NEGATIVE NEGATIVE Urine Barbiturates Screen NEGATIVE NEGATIVE Ur Tricyclic Antidepressants Screen NEGATIVE NEGATIVE Urine Phencyclidine Screen NEGATIVE NEGATIVE Urine Amphetamines Screen NEGATIVE NEGATIVE Urine Methamphetamines Screen NEGATIVE NEGATIVE Urine Benzodiazepines Screen NEGATIVE NEGATIVE Urine Cocaine Screen NEGATIVE NEGATIVE Urine Cannabinoids Screen NEGATIVE NEGATIVE (REED ISABEL) Medications Given in ED Current Medications Medications Dose Ordered Sig/Babs Route Start Time Stop Time Status Last Admin Dose Admin Ceftriaxone Sodium/Dextrose 50 ml @ 100 mls/hr ONCE ONCE IV 09/20/21 22:15 09/20/21 22:44 DC 09/20/21 22:45 100 MLS/HR (REED ISABEL) Vital Signs/I&O 09/21/21 00:00 Intake Total 1050 ml Balance 1050 ml (REED ISABEL) Progress Progress Note : Time: 03:09 Progress Note labs rechecked at 0130 - all WNL. BP holding steady at 110 systolic. She is awake alert and oriented. I spoke with her at length about inpatient treatment. She does not want to go inpatient at this time. She states after she took the meds, she was immediately "regretful" and was actually scared she was going to . She states that she prefers to try and work with her therapist and work through her trauma. She does not want a hospitalization to get in the way of that. I advised her I thought it would be a good idea for her to talk to the mental health screeners parvez so that we can formulate a safety plan with her. She is agreeable. i think at this time she is certainly cleared from a medical standpoint. Case was discussed with Poison control and at this time after the prolonged monitoring and no deterioration in patient condition they are closing out her case. (NICHOLAS JOHNSON MD) Progress Note #1: Time: 06:18 Progress Note Assumed care of the patient at shift change. She is asleep. Presently she is online to speak to the screener for safety plan. She is denying suicidal i deation and immediately recalcitrance of her actions upon arrival according to prior physicians history. Progress Note #2: Time: 08:00 Progress Note Mental health screeners are having a telehealth visit with the patient. 0835: Raquel from [facility] spoke with his provider and is attempting to decide whether the patient will need to be involuntary placement inpatient for psychiatric reasons or can be set up with a safety screen and outpatient follow- up. She does seem to have a lot of resources and friends who are looking after her. This is not her first attempt however. We explained to her that benzos were not seen in the urine drug screen despite claiming of taking a whole bottle of Ativan and the prazosin should have caused some blood pressure depression that was not seen in her vital signs during her ER stay. This cast some doubt to the veracity of the patient's claims however could just be dose related. 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 The patient is still involuntary to go inpatient for psychiatric reasons. Progress Note #3: Time: 09:44 Progress Note [facility] has provided a safety screen which the patient agrees to. We have gone over coping mechanisms and gone over the safety plan and handouts and the patient has agreed to this and signed the safety plan. [facility]'s ride. (REED ISABEL) Initial ECG Impression Date: Sep 20, 2021 Initial ECG Impression Time: 19:31 Initial ECG Rate: 62 Initial ECG Rhythm: Normal Sinus Initial ECG Intervals: Normal Initial ECG Intervals ME 161 QRS 76 QTc 473 Initial ECG Impression: Normal EKG #1: EKG Time: 21:35 Rate: 65 Rhythm: Normal Sinus Intervals: Normal Intervals ME 174 QRS 96 QTc 453 ECG Comparisson: Unchanged EKG #2: EKG Time: 00:28 Rate: 69 Rhythm: Normal Sinus Intervals: Normal Intervals ME 187 QRS 73 QTc 443 ECG Impression: Normal (NICHOLAS JOHNSON MD) Diagnostic Imaging Diagonstic Imaging: Xray Plain Films/CT/US/NM/MRI: chest Comments [facility] [place] [place] NAME: CARLO LUTHER MED REC#: [id number] PT STATUS: REG ER : 2001 PHYSICIAN: NICHOLAS JOHNSON MD ADMIT DATE: 09/20/21/ER Signed Date of Exam:09/20/21 CHEST 1 VIEW, AP/PA ONLY CHEST 1 VIEW, AP/PA ONLY Indication: Vomiting, drug overdose Comparison: 04/08/2018 Findings: No focal airspace disease in the visualized lungs. Please note that the posterior lower lobes are poorly evaluated by portable radiography. No pleural effusion or pneumothorax. Normal cardiomediastinal silhouette. Impression: 1. No acute cardiopulmonary process by portable radiography. Dictated by: Dictated on workstation # [id number] Dict: 09/20/212004 Trans: 09/20/212004 [facility] [id number] Interpreted by: MICHELE CLEANING MD Electronically signed by: MICHELE CLEANING MD 09/20/212004 (NICHOLAS JOHNSON MD) Departure Impression Primary Impression: Drug overdose Qualified Codes: T50.902A - Poisoning by unspecified drugs, medicaments and biological substances, intentional self-harm, initial encounter Additional Impressions: Suicidal ideations Depression Qualified Codes: F33.2 - Major depressive disorder, recurrent severe without psychotic features Disposition: 01 HOME, SELF-CARE Condition: Improved Departure-Patient Inst. Decision time for Depature: 03:17 (NICHOLAS JOHNSON MD) Decision time for Depature: 09:46 (REED ISABEL) Referrals: [facility] (PCP/Family) Primary Care Physician Patient Instructions: Depression, Adult (DC) Add. Discharge Instructions: Continue your daily medications. Please follow up with your therapist today. Please use the crisis hotline if you have any further thoughts of self harm or suicide. Come back to the Emergency Department if you have any new, concerning or emergent complaints. [facility] [phone] [address] [place] [address] Get Immediate Help [email or web address] or Call [phone] NICHOLAS JOHNSON MD Sep 20, 2021 19:45 REED ISABEL Sep 21, 2021 06:19
[2021-09-20 19:52] LABS: BASOPHILS # (AUTO) 0.1 10^3/uL (0.0-0.1); BASOPHILS % (AUTO) 1 % (0-10); EOSINOPHILS # (AUTO) 0.1 10^3/uL (0.0-0.3); EOSINOPHILS % (AUTO) 1 % (0-10); HEMATOCRIT 40 % (35-52); HEMOGLOBIN 12.8 g/dL (11.5-16.0); LYMPHOCYTES % (AUTO) 30 % (12-44); MEAN CORPUSCULAR HEMOGLOBIN 28 pg (25-34); MEAN CORPUSCULAR HGB CONC 32 g/dL (32-36); MEAN CORPUSCULAR VOLUME 88 fL (80-99); MEAN PLATELET VOLUME 12.1 fL (9.0-12.2); MONOCYTES # (AUTO) 0.7 10^3/uL (0.0-1.0); MONOCYTES % (AUTO) 7 % (0-12); NEUTROPHILS # (AUTO) 6.1 10^3/uL (1.8-7.8); NEUTROPHILS % (AUTO) 62 % (42-75); PLATELET COUNT 284 10^3/uL (130-400); WHITE BLOOD COUNT 9.9 10^3/uL (4.3-11.0)
[2021-09-20 20:07] LABS: ALANINE AMINOTRANSFERASE 17 U/L (0-55); ALBUMIN 4.5 GM/DL (3.2-4.5); ALKALINE PHOSPHATASE 60 U/L (40-136); BILIRUBIN,TOTAL 0.5 MG/DL (0.1-1.0); BUN/CREATININE RATIO 15; CALCIUM 9.4 MG/DL (8.5-10.1); CARBON DIOXIDE 19 MMOL/L (21-32); CHLORIDE 110 MMOL/L (98-107); CREATININE SERUM 0.91 MG/DL (0.60-1.30); GFR ESTIMATED 93; GLUCOSE 98 MG/DL (70-105); POTASSIUM 3.4 MMOL/L (3.6-5.0); SALICYLATE < 5.0 MG/DL (5.0-20.0); SODIUM 142 MMOL/L (135-145); TOTAL PROTEIN 7.8 GM/DL (6.4-8.2)
--- NOTE | 2021-09-20 20:07 | Diagnostic Imaging Report ---
CHEST 1 VIEW, AP/PA ONLY Indication: Vomiting, drug overdose Comparison: 04/08/2018 Findings: No focal airspace disease in the visualized lungs. Please note that the posterior lower lobes are poorly evaluated by portable radiography. No pleural effusion or pneumothorax. Normal cardiomediastinal silhouette. Impression: 1. No acute cardiopulmonary process by portable radiography. Dictated by: Dictated on workstation # [id number]
[2021-09-20 20:10] LABS: ACETAMINOPHEN < 10 UG/ML (10-30)
[2021-09-20 20:48] LABS: ABG BASE EXCESS -0.7 MMOL/L (-2.5-2.5); ABG OXYGEN SATURATION 97 % (94-100); ABG PCO2 41 MMHG (35-45); ABG PH 7.38 (7.37-7.43); ABG PO2 83 MMHG (79-93); ABG TCO2 25.2 MMOL/L (21.0-31.0); ALLENS TEST YES-POS; INSPIRED O2 ROOM AIR; PATIENT TEMP 36.4; VENTILATOR NO
[2021-09-20] MEDS ORDERED: NS IV 1000 ML 1,000 ML ONE (21:03)
[2021-09-20] MEDS ORDERED: NS IV 1000 ML 1,000 ML IV SCH ×2 (21:15→22:45)
[2021-09-20 21:53] LABS: BILIRUBIN,URINE NEGATIVE (NEGATIVE); CLARITY,URINE SL CLOUDY; COLOR,URINE YELLOW; GLUCOSE, URINE (UA) NEGATIVE (NEGATIVE); KETONES,URINE TRACE (NEGATIVE); LEUKOCYTE ESTERASE ,URINE TRACE (NEGATIVE); NITRITE,URINE NEGATIVE (NEGATIVE); PROTEIN,URINE TRACE (NEGATIVE)
[2021-09-20 21:59] LABS: BACTERIA,URINE LARGE /HPF
[2021-09-20 22:01] LABS: AMPHETAMINE SCREEN, URINE NEGATIVE (NEGATIVE); BARBITURATE SCREEN URINE NEGATIVE (NEGATIVE); BENZODIAZEPINES SCREEN URINE NEGATIVE (NEGATIVE); CANNABINOID SCREEN, URINE NEGATIVE (NEGATIVE); COCAINE SCREEN URINE NEGATIVE (NEGATIVE); METHADONE STAT NEGATIVE (NEGATIVE); METHAMPHETAMINE SCREEN URINE S NEGATIVE (NEGATIVE); OPIATE SCREEN URINE NEGATIVE (NEGATIVE); OXYCODONE STAT NEGATIVE (NEGATIVE); PROPOXYPHENE STAT NEGATIVE (NEGATIVE); TRICYCLIC ANTIDEPRESSANTS SCRE NEGATIVE (NEGATIVE)
[2021-09-20] MEDS ORDERED: cefTRIAXone 1 GM PRE-MIX 50 ML IV ONE (22:15)
[2021-09-21 01:47] LABS: POTASSIUM 3.8 MMOL/L (3.6-5.0)
[2021-09-21 01:49] LABS: CALCIUM 8.5 MG/DL (8.5-10.1)
[2021-09-21 01:53] LABS: CREATININE SERUM 0.78 MG/DL (0.60-1.30)
[2021-09-21 01:55] LABS: MAGNESIUM 2.1 MG/DL (1.6-2.4)
[2021-09-21 10:30] VITALS: BP 115/65
== END 2021-09-21 10:30 | disposition home or self-care (01) ==
LOC: EDUNIT# 19:25 → ER 19:28
DX: T50.992A Poisoning by other drugs, medicaments and biological substances, intentional self-harm, initial encounter (principal); F32.9 Major depressive disorder, single episode, unspecified; X83.8XXA Intentional self-harm by other specified means, initial encounter
CPT/HCPCS: 71045; 80048; 80053; 80306; 81000; 82805; 83735 ×2; 84703; 85025; 87088; 93005 ×2; 99285; G0480 ×3; 36415; 80320; 80329

== ENCOUNTER 2022-05-13 13:25 | Emergency (ER) | payer MEDICAID ==
[~2022-05-13] VITALS: Ht 165.1 cm; Wt 104.3 kg
[2022-05-13] MEDS ORDERED: fentaNYL INJ 100 MCG/2 ML AMP IVP ONE (14:00)
[2022-05-13] MEDS ORDERED: NS IV 1000 ML 1,000 ML IV SCH (14:00)
[2022-05-13] MEDS ORDERED: ONDANSETRON 4 MG/2 ML (SDV) Z0FRAN IVP ONE (14:00)
--- NOTE | 2022-05-13 14:00 | ED Abdominal Pain ---
General Chief Complaint: Abdominal/GI Problems Stated Complaint: ABD PAIN Nursing Triage Note: FRIDAY NIGHT FEELING NAUSEOUS, STOMACH PAIN GETTING WORSE, HAVENT HAD MUCH OF AN APPETITE, KEEPING FLUIDS DOWN BUT NAUSEA CONTINUES. DENIES DIARRHEA, ONLY VOMITING EPISODE WAS Friday. RIGHT LOWER QUADRANT PAIN. MOVING MAKES PAIN WORSE. Source of Information: Patient Exam Limitations: No Limitations History of Present Illness Date Seen by Provider: May 13, 2022 Time Seen by Provider: 13:45 Initial Comments Patient is a 22-year-old female who presents to the emergency department today with a chief complaint of right lower quadrant abdominal discomfort, feelings of nausea and vomiting x3. Decreased appetite. Patient states that she has had previous cholecystectomy. She denies fevers or chills. No dysuria, urgency or frequency. No abnormal vaginal discharge. Movement makes the pain worse. She has not taken anything for it. Her last menstrual cycle was 3 weeks ago. She states she is not sexually active. All other review of systems reviewed and negative except as stated. Timing/Duration: 1-2 Days Severity/Quality: Sharp Location: RLQ Radiation: No Radiation Activities at Onset: None Modifying Factors: Worsens With Movement; Improves With Resting Associated Symptoms: Nausea/Vomiting Allergies and Home Medications Allergies Coded Allergies: albuterol (Verified Allergy, Severe, DROPS O2 LEVEL, INCREASED HR, 06/03/18) Patient Home Medication List Home Medication List Reviewed: Yes Alprazolam (Alprazolam) 0.5 Mg Tablet, (Reported) Entered as Reported by: ALDO CAZARES on 07/15/21612 Butalb/Acetaminophen/Caffeine (Esgic 50-325-40 mg Tablet) 1 Each Tablet, 1-2 EACH PO Q6 Prescribed by: JOSE ANTONIO BAHENA on 07/15/21622 Fluoxetine HCl (Fluoxetine HCl) 10 Mg Capsule, (Reported) Entered as Reported by: ALDO CAZARES on 07/15/21612 Ibuprofen (Ibuprofen) 800 Mg Tablet, 800 MG PO Q6H PRN for PAIN-MILD Prescribed by: JOSE ANTONIO BAHENA on 07/15/21622 Ondansetron (Ondansetron Odt) 4 Mg Tab.rapdis, 4 MG SL Q4H PRN for NAUSEA/VOMITING Prescribed by: SADA PETERS on 07/16/21 0253 Ondansetron (Ondansetron Odt) 4 Mg Tab.rapdis, 4 MG SL Q8H PRN for N AUSEA/VOMITING Prescribed by: NICHOLAS JOHNSON on 05/13/22 1616 Review of Systems Review of Systems Constitutional: see HPI EENTM: No Symptoms Reported Respiratory: No Symptoms Reported Cardiovascular: No Symptoms Reported Gastrointestinal: Abdominal Pain, Nausea, Vomiting Genitourinary: No Symptoms Reported Musculoskeletal: no symptoms reported Skin: no symptoms reported All Other Systems Reviewed Negative Unless Noted: Yes Past Tpinrfg-Ahcxlj-Jeuwta Hx Patient Social History Tobacco Use?: No Use of E-Cig and/or Vaping dev: No Substance use?: No Alcohol Use?: Yes Alcohol Frequency: Once in a while Pt feels they are or have been: No Immunizations Up To Date Tetanus Booster (TDap): Unknown PED Vaccines UTD: Yes Influenza Vaccine Up-to-Date: Yes; Up-to-Date First/Initial COVID19 Vaccinat: 08/10 Second COVID19 Vaccination Evan: 09/10 Third COVID19 Vaccination Date: 05/18/21 COVID19 Vaccine 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 Surgeries: Yes (Bilat knees, left hand; EGD) Orthopedic Respiratory: Yes Asthma Cardiac: No Neurological: Yes Headaches /Migraines Last Menstrual Period: Apr 22, 2022 Reproductive Disorders: No Female Reproductive Disorders: Denies Sexually Transmitted Disease: No HIV/AIDS: No Genitourinary: No Gastrointestinal: Yes Gastroesophageal Reflux, Hiatal Hernia, Ulcer, Gall Bladder Disease Musculoskeletal: Yes (KNEES AND HAND SURGERY) Endocrine: No HEENT: No Loss of Vision: Denies Hearing Impairment: Denies Cancer: No Psychosocial: Yes Sleep Difficulties, Anxiety Integumentary: No Blood Disorders: No Adverse Reaction/Blood Tranf: No (N/A) Family Medical History Abdominal aortic aneurysm 19 MOTHER (MATERNAL GREAT GRANDFATHER) Alcoholism 19 FATHER (PARTENAL GRANDFATHER AND FATHER) Arthritis 19 FATHER Asthma 19 MOTHER G8 SISTER Cardiovascular disease 19 FATHER (GRANDFATHER) 19 MOTHER (MATERNAL GRANDFATHER) Cataracts 19 MOTHER (GRANDFATHER) Completed stroke 19 FATHER (GRANDMOTHER) Deafness or hearing loss Diabetes mellitus 19 MOTHER (GRANDFATHER) Drug abuse 19 FATHER (FATHER) Glaucoma 19 FATHER (GRANDFATHER) Hypercholesterolemia 19 FATHER (GRANDMOTHER) Hypertension 19 MOTHER (AUNTS) Kidney disease 19 MOTHER (GRANDFATHER) Myocardial infarction 19 FATHER (GRANDFATHER) 19 MOTHER (GREAT GRANDPARENTS) Respiratory disorder 19 FATHER (GRANDFATHER) Thyroid disease 19 MOTHER Tuberculosis 19 FATHER (GRANDFATHER) Physical Exam Vital Signs Vital Signs - First Documented 05/13/22 13:30 Temp 37.3 Pulse 89 Resp 18 B/P (MAP) 128/89 (102) Pulse Ox 98 O2 Delivery Room Air Capillary Refill : Less Than 3 Seconds Height/Weight/BMI Height: 5'5.00" Weight: 200lbs. 0.0oz. [id number]; 38.00 BMI Method:Stated General Appearance: WD/WN, no apparent distress HEENT: PERRL/EOMI Respiratory: lungs clear, normal breath sounds, no respiratory distress, no accessory muscle use Cardiovascular: regular rate, rhythm Gastrointestinal: soft, rebound (equivocal), tenderness (RLQ), other (+ mild Rovsing's) Extremities: normal range of motion, normal inspection Back: no CVA tenderness Neurologic/Psychiatric: alert, normal mood/affect, oriented x 3 Skin: normal color, warm/dry Procedures/Interventions Suture Size: 5-0 Progress/Results/Core Measures Results/Orders Lab Results Laboratory Tests Test 05/13/22 14:02 Range/Units White Blood Count 11.4 H 4.3-11.0 10^3/uL Red Blood Count 5.11 3.80-5.11 10^6/uL Hemoglobin 14.5 11.5-16.0 g/dL Hematocrit 43 35-52 % Mean Corpuscular Volume 84 80-99 fL Mean Corpuscular Hemoglobin 28 25-34 pg Mean Corpuscular Hemoglobin Concent 34 32-36 g/dL Red Cell Distribution Width 13.0 10.0-14.5 % Platelet Count 349 130-400 10^3/uL Mean Platelet Volume 11.7 9.0-12.2 fL Immature Granulocyte % (Auto) 0 % Neutrophils (%) (Auto) 66 42-75 % Lymphocytes (%) (Auto) 24 12-44 % Monocytes (%) (Auto) 7 0-12 % Eosinophils (%) (Auto) 1 0-10 % Basophils (%) (Auto) 1 0-10 % Neutrophils # (Auto) 7.6 1.8-7.8 10^3/uL Lymphocytes # (Auto) 2.8 1.0-4.0 10^3/uL Monocytes # (Auto) 0.8 0.0-1.0 10^3/uL Eosinophils # (Auto) 0.2 0.0-0.3 10^3/uL Basophils # (Auto) 0.1 0.0-0.1 10^3/uL Immature Granulocyte # (Auto) 0.0 0.0-0.1 10^3/uL Sodium Level 141 135-145 MMOL/L Potassium Level 4.2 3.6-5.0 MMOL/L Chloride Level 105 98-107 MMOL/L Carbon Dioxide Level 24 21-32 MMOL/L Anion Gap 12 5-14 MMOL/L Blood Urea Nitrogen 11 7-18 MG/DL Creatinine 1.10 0.60-1.30 MG/DL Estimat Glomerular Filtration Rate 73 BUN/Creatinine Ratio 10 Glucose Level 93 70-105 MG/DL Calcium Level 9.5 8.5-10.1 MG/DL Corrected Calcium 9.3 8.5-10.1 MG/DL Total Bilirubin 0.7 0.1-1.0 MG/DL Aspartate Amino Transf (AST/SGOT) 18 5-34 U/L Alanine Aminotransferase (ALT/SGPT) 36 0-55 U/L Alkaline Phosphatase 61 40-136 U/L Total Protein 7.9 6.4-8.2 GM/DL Albumin 4.3 3.2-4.5 GM/DL Serum Test, Qualitative NEGATIVE NEGATIVE My Orders Orders - NICHOLAS JOHNSON MD Ed Iv/Invasive Line Start (05/13/22 14:00) Cbc With Automated Diff (05/13/22 14:00) Comprehensive Metabolic Panel (05/13/22 14:00) Hcg,Qualitative Serum (05/13/22 14:00) Ondansetron Injection (Zofran Injectio (05/13/22 14:00) Ns Iv 1000 Ml (Sodium Chloride 0.9%) (05/13/22 14:00) Fentanyl Inj (Sublimaze Injection) (05/13/22 14:00) Ct Abd/Pelv W (Appendicitis) (05/13/22 15:06) Iohexol Injection (Omnipaque 350 Mg/Ml 1 (05/13/22 15:15) Received Contrast (Hold Metformin- Contr (05/13/22 15:15) Ns (Ivpb) (Sodium Chloride 0.9% Ivpb Bag (05/13/22 15:15) Sodium Chloride Flush (Catheter Flush Sy (05/13/22 15:15) Medications Given in ED Vital Signs/I&O 05/13/22 05/13/22 13:30 16:22 Temp 37.3 Pulse 89 80 Resp 18 B/P (MAP) 128/89 (102) 137/87 Pulse Ox 98 98 O2 Delivery Room Air Room Air 05/13/22 23:59 Intake Total 1000 ml Balance 1000 ml Blood Pressure Mean: 102 Progress Progress Note : Time: 16:15 Progress Note Patient feels much better as far as her pain at the time of discharge. Her CT is negative for acute appendicitis. She does have a 1.9 cm cyst in the right adnexa. Physiologic free fluid. No concerning findings for any other surgical pathology. She is a little bit nauseous at discharge we will give another 4 mg of Zofran sublingually. I will send her a prescription for nausea medicines as well. Return precautions have been provided. All questions are sought and answered. Diagnostic Imaging Diagonstic Imaging: CT Comments [facility], [place] NAME: CARLO LUTHER Ludy [facility] REC#: [id number] PT STATUS: REG ER : 2000 PHYSICIAN: NICHOLAS JOHNSON MD ADMIT DATE: 05/13/22/ER Draft Date of Exam:05/13/22 CT ABD/PELV W (APPENDICITIS) PROCEDURE: CT abdomen and pelvis with contrast, rule out appendicitis. TECHNIQUE: Multiple contiguous axial images were obtained through the abdomen and pelvis after the administration of intravenous contrast. All CT scans use one or more of the following dose optimizing techniques: automated exposure control, MA and/or KvP adjustment based on patient size and exam type or iterative reconstruction. DATE: May 13, 2022. COMPARISON: None. INDICATION: 22-year-old female, right lower quadrant abdominal pain. Nausea. FINDINGS: The visualized portions of the lung bases are clear. The heart is not enlarged. There is no pericardial effusion. The liver is unremarkable in size and contour. There is no identified liver lesion. The main, right, and left portal veins are patent. The gallbladder surgically absent. There is no biliary ductal dilation. Unremarkable appearance of the pancreas. There is an accessory splenule. The spleen is normal in size. The adrenal glands are unremarkable. Unremarkable appearance of the renal parenchyma. The urinary collecting systems are not distended. There is no identified renal or ureteral stone. Urinary bladder is unremarkable. There is a probable right ovarian follicle on axial image 126 which measures 1.9 cm in size. There is minimal free fluid in the pelvis. The appendix is best seen on axial image 116 and adjacent sequential images. There is no evidence of acute appendicitis. There is no free intraperitoneal air. There is no drainable fluid collection. There is no identified abnormally enlarged lymph node in the abdomen or pelvis meeting CT size criteria for adenopathy. There is no identified acute bony abnormality. IMPRESSION: CT ABDOMEN AND PELVIS. 1. No evidence of acute appendicitis. 2. Probable right ovarian follicle or cyst measuring up to 1.9 cm size with small amount of free pelvic fluid which is likely physiologic. Dictated on workstation # [id number] Dict: 05/13/22 1547 Trans: 05/13/22 1559 CV [id number] Interpreted by: LAZ DWYER MD Electronically signed by: Departure Impression Primary Impression: Abdominal pain Qualified Codes: R10.31 - Right lower quadrant pain Disposition: 01 HOME, SELF-CARE Condition: Stable Departure-Patient Inst. Decision time for Depature: 16:14 Referrals: RJ MEDINA MD (PCP/Family) Primary Care Physician Add. Discharge Instructions: Drink plenty of fluids to stay well-hydrated. Indm-xwp-xjzcfde ibuprofen 3 tablets which is 600 mg every 6 hours as needed for pain. Zofran 4 mg every 8 hours as needed for nausea. Monitor your symptoms for fever, worsening pain, vomiting that is not controlled with medication. If any of these develop please come back to the emergency room for reevaluation. Scripts Ondansetron (Ondansetron Odt) 4 Mg Tab.rapdis 4 MG SL Q8H PRN for NAUSEA/VOMITING, #15 TAB Prov: NICHOLAS JOHNSON MD 05/13/22 NICHOLAS JOHNSON MD May 13, 2022 14:00
[2022-05-13 14:13] LABS: BASOPHILS # (AUTO) 0.1 10^3/uL (0.0-0.1); BASOPHILS % (AUTO) 1 % (0-10); EOSINOPHILS # (AUTO) 0.2 10^3/uL (0.0-0.3); EOSINOPHILS % (AUTO) 1 % (0-10); HEMATOCRIT 43 % (35-52); HEMOGLOBIN 14.5 g/dL (11.5-16.0); LYMPHOCYTES # (AUTO) 2.8 10^3/uL (1.0-4.0); LYMPHOCYTES % (AUTO) 24 % (12-44); MEAN CORPUSCULAR HEMOGLOBIN 28 pg (25-34); MEAN CORPUSCULAR HGB CONC 34 g/dL (32-36); MEAN CORPUSCULAR VOLUME 84 fL (80-99); MEAN PLATELET VOLUME 11.7 fL (9.0-12.2); MONOCYTES # (AUTO) 0.8 10^3/uL (0.0-1.0); MONOCYTES % (AUTO) 7 % (0-12); NEUTROPHILS # (AUTO) 7.6 10^3/uL (1.8-7.8); NEUTROPHILS % (AUTO) 66 % (42-75); PLATELET COUNT 349 10^3/uL (130-400); WHITE BLOOD COUNT 11.4 10^3/uL (4.3-11.0)
[2022-05-13 14:23] LABS: ALBUMIN 4.3 GM/DL (3.2-4.5); POTASSIUM 4.2 MMOL/L (3.6-5.0)
[2022-05-13 14:24] LABS: CALCIUM 9.5 MG/DL (8.5-10.1)
[2022-05-13 14:25] LABS: TOTAL PROTEIN 7.9 GM/DL (6.4-8.2)
[2022-05-13 14:27] LABS: BILIRUBIN,TOTAL 0.7 MG/DL (0.1-1.0)
[2022-05-13 14:29] LABS: CREATININE SERUM 1.1 MG/DL (0.60-1.30)
[2022-05-13] MEDS ORDERED: NS 100 ML (IVPB) BAG IV ONE (15:15)
[2022-05-13] MEDS ORDERED: CATHETER FLUSH 10 ML SYR IV PRN (15:15)
[2022-05-13] MEDS ORDERED: HOLD METFORMIN - RECEIVED CONTRAST 20 ML VIAL IV SCH (15:15)
[2022-05-13] MEDS ORDERED: IOHEXOL 350 MG/ML 100 ML (OMNIPAQUE 350) VIAL IV ONE (15:15)
--- NOTE | 2022-05-13 16:00 | Diagnostic Imaging Report ---
PROCEDURE: CT abdomen and pelvis with contrast, rule out appendicitis. TECHNIQUE: Multiple contiguous axial images were obtained through the abdomen and pelvis after the administration of intravenous contrast. All CT scans use one or more of the following dose optimizing techniques: automated exposure control, MA and/or KvP adjustment based on patient size and exam type or iterative reconstruction. DATE: May 13, 2022. COMPARISON: None. INDICATION: 22-year-old female, right lower quadrant abdominal pain. Nausea. FINDINGS: The visualized portions of the lung bases are clear. The heart is not enlarged. There is no pericardial effusion. The liver is unremarkable in size and contour. There is no identified liver lesion. The main, right, and left portal veins are patent. The gallbladder surgically absent. There is no biliary ductal dilation. Unremarkable appearance of the pancreas. There is an accessory splenule. The spleen is normal in size. The adrenal glands are unremarkable. Unremarkable appearance of the renal parenchyma. The urinary collecting systems are not distended. There is no identified renal or ureteral stone. Urinary bladder is unremarkable. There is a probable right ovarian follicle on axial image 126 which measures 1.9 cm in size. There is minimal free fluid in the pelvis. The appendix is best seen on axial image 116 and adjacent sequential images. There is no evidence of acute appendicitis. There is no free intraperitoneal air. There is no drainable fluid collection. There is no identified abnormally enlarged lymph node in the abdomen or pelvis meeting CT size criteria for adenopathy. There is no identified acute bony abnormality. IMPRESSION: CT ABDOMEN AND PELVIS. 1. No evidence of acute appendicitis. 2. Probable right ovarian follicle or cyst measuring up to 1.9 cm size with small amount of free pelvic fluid which is likely physiologic. Dictated by: Dictated on workstation # [id number]
[2022-05-13] MEDS ORDERED: ONDA4TAB11 SL (16:16)
[2022-05-13 16:22] VITALS: BP 137/87
== END 2022-05-13 16:22 | disposition home or self-care (01) ==
LOC: EDUNIT# 13:25 → ER 13:28
DX: R10.31 Right lower quadrant pain (principal); R11.2 Nausea with vomiting, unspecified; Z90.49 Acquired absence of other specified parts of digestive tract; Z32.02 Encounter for pregnancy test, result negative
CPT/HCPCS: 36415; 74177; 80053; 84703; 85025

== ENCOUNTER → 2022-08-15 | Outpatient (CLI) | payer MEDICAID ==
--- NOTE | 2022-08-15 15:34 | Diagnostic Imaging Report ---
INDICATION: Pain, limited range of motion COMPARISON: None available TECHNIQUE: Two radiographs of the left shoulder dated 08/15/2022. No acute fracture or dislocation. No destructive osseous process. The acromioclavicular joint is unremarkable. The glenohumeral joint relationship is well-maintained. No suspicious radiopaque foreign body. IMPRESSION: No acute osseous abnormality. Dictated by: Dictated on workstation # [id number]
== END ==
LOC: RAD 10:18
PROVIDERS: ATTEND Nurse Practitioner Family
DX: S49.92XA Unspecified injury of left shoulder and upper arm, initial encounter (principal); W19.XXXA Unspecified fall, initial encounter
CPT/HCPCS: 73030

== ENCOUNTER → 2022-09-16 | Outpatient (CLI) | payer OTHER ==
[~2022-09-16] VITALS: Ht 165.1 cm; Wt 102.3 kg
[~2022-09-16] MED LIST changes: +GADOTERATE 0.5 MMOL/ML (CLARISCAN) 15 ML VIAL IV ONE; +GADOTERATE 0.5 MMOL/ML (CLARISCAN) 5 ML VIAL IV ONE; +IOHEXOL 240 MGI/ML 50 ML (OMNIPAQUE) VIAL IV ONE; +LIDOCAINE 1% INJ 30 ML (XYLOCAINE) VIAL INJ ONE; +LIDOCAINE 1% INJ 30 ML (XYLOCAINE) VIAL ONE
--- NOTE | 2022-09-16 15:20 | Diagnostic Imaging Report ---
INDICATION: Left shoulder pain. Patient brought to the procedure room and placed on the table in supine position. Left shoulder was prepped and draped in usual sterile fashion. Small amount of 1% lidocaine was utilized for local anesthesia. A 22-gauge needle was advanced to left shoulder at the rotator interval. A 15 mm solution of iodinated contrast, normal saline and gadolinium was injected under fluoroscopic observation. Needle was removed and hemostasis was obtained. Total of 12 seconds of fluoroscopic time was utilized. Patient tolerated procedure well and was sent to MRI in satisfactory condition. IMPRESSION: Successful left shoulder injection of gadolinium contrast solution, using fluoroscopy. Dictated by: Dictated on workstation # [id number]
--- NOTE | 2022-09-16 15:48 | Diagnostic Imaging Report ---
EXAMINATION: Magnetic resonance imaging of the left shoulder with intra-articular contrast. DATE: September 16, 2022. COMPARISON: MRI left shoulder July 19, 2019. HISTORY: 22-year-old female, left shoulder pain and limited range of motion. History of recent injury in July 2022. History of prior shoulder surgery in 2019. TECHNIQUE: Magnetic Resonance Imaging sequences were performed of the shoulder following the intra-articular administration of contrast. FINDINGS: ROTATOR CUFF, LIGAMENTS, TENDONS, AND MUSCLES: The supraspinatus, infraspinatus, teres minor, and subscapularis tendons and muscles are intact. There is normal rotator cuff muscle bulk and signal. LONG HEAD OF BICEPS: The biceps labral attachment and long head of the biceps tendon is intact. The long head of the biceps tendon is normally positioned within the bicipital groove. GLENOHUMERAL JOINT: The humeral head is well positioned relative to the glenoid. There is an anchor in the superior glenoid which may reflect prior labral surgery. The labrum is intact currently. There is no identified paralabral cyst. The articular cartilage is grossly intact. There is no identified intra-articular body or prominent synovitis. ACROMIOCLAVICULAR JOINT: The acromioclavicular joint is normally aligned. The coracoclavicular and coracoacromial ligaments are intact. There are no degenerative changes of the acromioclavicular joint. BONE: There is no os acromiale. There is no Hill-Sachs deformity. There is no acute fracture, bone contusion, or evidence of osteonecrosis. BURSAE AND SOFT TISSUES: The bursae and soft tissue surrounding the shoulder are unremarkable. IMPRESSION: 1. Reliance in the superior glenoid likely reflecting prior labral surgery. The labrum is intact. Additional glenohumeral joint assessment is unremarkable. 2. Intact rotator cuff and proximal long head of biceps tendon. 3. Intact acromioclavicular joint. 4. No acute fracture, bone contusion, or other notable bone marrow signal abnormality. Dictated by: Dictated on workstation # [id number]
== END ==
LOC: RAD 13:57
PROVIDERS: ATTEND Family Medicine Sports Medicine
DX: S43.432D Superior glenoid labrum lesion of left shoulder, subsequent encounter (principal); S43.422D Sprain of left rotator cuff capsule, subsequent encounter; X58.XXXD Exposure to other specified factors, subsequent encounter
CPT/HCPCS: 23350; 73040; 73222

== ENCOUNTER 2023-01-03 06:30 | Emergency (ER) | payer MEDICAID ==
[~2023-01-03] VITALS: Ht 165 cm; Wt 105.0 kg
[~2023-01-03 06:30] MED LIST changes: -GADOTERATE 0.5 MMOL/ML (CLARISCAN) 15 ML VIAL IV ONE; -GADOTERATE 0.5 MMOL/ML (CLARISCAN) 5 ML VIAL IV ONE; -IOHEXOL 240 MGI/ML 50 ML (OMNIPAQUE) VIAL IV ONE; -LIDOCAINE 1% INJ 30 ML (XYLOCAINE) VIAL INJ ONE; -LIDOCAINE 1% INJ 30 ML (XYLOCAINE) VIAL ONE
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
[2023-01-03] MEDS ORDERED: LORazepam 1 MG (ATIVAN) TAB PO ONE (08:00)
[2023-01-03 08:40] VITALS: BP 122/79
== END 2023-01-03 08:41 | disposition home or self-care (01) ==
LOC: EDUNIT# 06:30 → ER 06:35
DX: F43.0 Acute stress reaction (principal); Z86.59 Personal history of other mental and behavioral disorders
CPT/HCPCS: 99283

== ENCOUNTER 2023-01-17 20:30 | Emergency (ER) | payer MEDICAID ==
[~2023-01-17] VITALS: Ht 165.1 cm; Wt 104.3 kg
[2023-01-17] MEDS ORDERED: NS IV 1000 ML 1,000 ML IV STA (21:03)
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
[2023-01-17] MEDS ORDERED: HOLD METFORMIN - RECEIVED CONTRAST 20 ML VIAL IV SCH (21:30)
[2023-01-17] MEDS ORDERED: NS 100 ML (IVPB) BAG IV ONE (21:30)
[2023-01-17] MEDS ORDERED: CATHETER FLUSH 10 ML SYR IV PRN (21:30)
[2023-01-17] MEDS ORDERED: IOHEXOL 350 MG/ML 100 ML (OMNIPAQUE 350) VIAL IV ONE (21:30)
[2023-01-17 21:33] LABS: BASOPHILS # (AUTO) 0.1 10^3/uL (0.0-0.1); BASOPHILS % (AUTO) 1 % (0-10); EOSINOPHILS # (AUTO) 0.1 10^3/uL (0.0-0.3); EOSINOPHILS % (AUTO) 1 % (0-10); HEMATOCRIT 43 % (35-52); HEMOGLOBIN 14.1 g/dL (11.5-16.0); LYMPHOCYTES # (AUTO) 2.3 10^3/uL (1.0-4.0); LYMPHOCYTES % (AUTO) 19 % (12-44); MEAN CORPUSCULAR HEMOGLOBIN 29 pg (25-34); MEAN CORPUSCULAR HGB CONC 33 g/dL (32-36); MEAN CORPUSCULAR VOLUME 88 fL (80-99); MEAN PLATELET VOLUME 11.5 fL (9.0-12.2); MONOCYTES # (AUTO) 0.8 10^3/uL (0.0-1.0); MONOCYTES % (AUTO) 6 % (0-12); NEUTROPHILS # (AUTO) 9.1 10^3/uL (1.8-7.8); NEUTROPHILS % (AUTO) 73 % (42-75); PLATELET COUNT 340 10^3/uL (130-400); WHITE BLOOD COUNT 12.5 10^3/uL (4.3-11.0)
[2023-01-17 21:42] LABS: ALBUMIN 4.4 GM/DL (3.2-4.5); CHLORIDE 108 MMOL/L (98-107); POTASSIUM 4.1 MMOL/L (3.6-5.0); SODIUM 141 MMOL/L (135-145)
[2023-01-17 21:43] LABS: CALCIUM 9.3 MG/DL (8.5-10.1)
[2023-01-17 21:45] LABS: GLUCOSE 103 MG/DL (70-105); TOTAL PROTEIN 7.8 GM/DL (6.4-8.2)
[2023-01-17 21:46] LABS: CARBON DIOXIDE 22 MMOL/L (21-32)
[2023-01-17 21:47] LABS: BILIRUBIN,TOTAL 0.2 MG/DL (0.1-1.0)
[2023-01-17 21:48] LABS: ALKALINE PHOSPHATASE 77 U/L (40-136); CREATININE SERUM 0.95 MG/DL (0.60-1.30); GFR ESTIMATED 87
--- NOTE | 2023-01-17 21:48 | Diagnostic Imaging Report ---
PROCEDURE: CT angiography of the head and CT angiography of the neck with and without contrast. TECHNIQUE: Contiguous noncontrast images were obtained from the skull base through the vertex. After intravenous contrast administration, helical CT angiography of the neck was performed. Source data was reformatted into 3D MIP projections. Delayed post contrast acquisition was also obtained. Auto Exposure Controls were utilized during the CT exam to meet ALARA standards for radiation dose reduction. INDICATION: Hanging injury. CT HEAD: The ventricles are normal in size, shape and position. There is no mass or hemorrhage. There is no extra-axial fluid collection. Postcontrast images do not show any abnormal area of enhancement. Intracranial vasculature shows no aneurysm, arteriovenous malformation or large vessel occlusion. CTA NECK: The vertebral arteries are both widely patent. The common, internal and external carotid arteries are widely patent. Jugular veins are widely patent. The hyoid bone is intact. There is no pathologic mass or fluid collection. IMPRESSION: Unremarkable CTA head and neck. Dictated by: Dictated on workstation # [id number]
[2023-01-17 21:50] LABS: BUN/CREATININE RATIO 11
[2023-01-17 21:51] LABS: SALICYLATE < 5.0 MG/DL (5.0-20.0)
[2023-01-17 21:52] LABS: ALANINE AMINOTRANSFERASE 42 U/L (0-55)
[2023-01-17 21:55] LABS: ACETAMINOPHEN < 10 UG/ML (10-30)
[2023-01-18 03:30] LABS: BILIRUBIN,URINE NEGATIVE (NEGATIVE); CLARITY,URINE CLEAR; COLOR,URINE YELLOW; GLUCOSE, URINE (UA) NEGATIVE (NEGATIVE); KETONES,URINE NEGATIVE (NEGATIVE); LEUKOCYTE ESTERASE ,URINE NEGATIVE (NEGATIVE); NITRITE,URINE NEGATIVE (NEGATIVE); PH,URINE 5.5 (5-9); PROTEIN,URINE NEGATIVE (NEGATIVE)
[2023-01-18 03:36] LABS: HCG,QUALITATIVE URINE NEGATIVE (NEGATIVE)
[2023-01-18 03:37] LABS: BACTERIA,URINE NEGATIVE /HPF
[2023-01-18 03:42] LABS: AMPHETAMINE SCREEN, URINE NEGATIVE (NEGATIVE); BARBITURATE SCREEN URINE NEGATIVE (NEGATIVE); BENZODIAZEPINES SCREEN URINE POSITIVE (NEGATIVE); CANNABINOID SCREEN, URINE NEGATIVE (NEGATIVE); COCAINE SCREEN URINE NEGATIVE (NEGATIVE); METHADONE STAT NEGATIVE (NEGATIVE); OPIATE SCREEN URINE NEGATIVE (NEGATIVE); OXYCODONE STAT NEGATIVE (NEGATIVE); PROPOXYPHENE STAT NEGATIVE (NEGATIVE); TRICYCLIC ANTIDEPRESSANTS SCRE NEGATIVE (NEGATIVE)
[2023-01-18] MEDS ORDERED: TAMSULOSIN 0.4 MG (FLOMAX) CAP PO SCH ×2 (10:30→18:00)
[2023-01-18 22:26] VITALS: BP 116/80
== END 2023-01-18 21:24 ==
LOC: EDUNIT# 20:30 → ER 20:32
DX: T71.162A Asphyxiation due to hanging, intentional self-harm, initial encounter (principal); R33.9 Retention of urine, unspecified; E66.9 Obesity, unspecified; F41.9 Anxiety disorder, unspecified; Z68.38 Body mass index [BMI] 38.0-38.9, adult
CPT/HCPCS: 51701; 70496; 70498; 80053; 80306; 81000; 84703 ×2; 85025; 93005; 93041; 99284; G0480 ×3; 36415; 80320; 80329

== ENCOUNTER 2023-02-11 09:10 | Outpatient (RCR) | payer MEDICAID, OTHER | END 2023-02-17 | disposition home or self-care (01) | PROVIDERS: ATTEND Orthopaedic Surgery | DX: S43.432D Superior glenoid labrum lesion of left shoulder, subsequent encounter (principal); J45.909 Unspecified asthma, uncomplicated; X58.XXXD Exposure to other specified factors, subsequent encounter ==

== ENCOUNTER 2023-03-04 15:30 | Observation (INO) | payer MEDICAID ==
[~2023-03-04] VITALS: Ht 165.1 cm; Wt 104.1 kg
[2023-03-04 16:27] LABS: BASOPHILS % (AUTO) 0 % (0-10); EOSINOPHILS % (AUTO) 0 % (0-10); HEMATOCRIT 41 % (35-52); HEMOGLOBIN 13.7 g/dL (11.5-16.0); LYMPHOCYTES % (AUTO) 19 % (12-44); MEAN CORPUSCULAR HEMOGLOBIN 29 pg (25-34); MEAN CORPUSCULAR HGB CONC 33 g/dL (32-36); MEAN CORPUSCULAR VOLUME 85 fL (80-99); MEAN PLATELET VOLUME 11.4 fL (9.0-12.2); MONOCYTES # (AUTO) 0.6 X 10^3 (0.0-1.0); MONOCYTES % (AUTO) 6 % (0-12); NEUTROPHILS % (AUTO) 75 % (42-75); PLATELET COUNT 357 10^3/uL (130-400); WHITE BLOOD COUNT 10.7 10^3/uL (4.3-11.0)
[2023-03-04 16:33] LABS: ALBUMIN 4.4 GM/DL (3.2-4.5); CHLORIDE 108 MMOL/L (98-107); POTASSIUM 3.9 MMOL/L (3.6-5.0); SODIUM 142 MMOL/L (135-145)
[2023-03-04 16:35] LABS: CALCIUM 9.6 MG/DL (8.5-10.1)
[2023-03-04 16:36] LABS: GLUCOSE 95 MG/DL (70-105); TOTAL PROTEIN 8.1 GM/DL (6.4-8.2)
[2023-03-04 16:37] LABS: CARBON DIOXIDE 22 MMOL/L (21-32)
[2023-03-04 16:38] LABS: BILIRUBIN,TOTAL 0.4 MG/DL (0.1-1.0)
[2023-03-04 16:40] LABS: ALKALINE PHOSPHATASE 72 U/L (40-136); CREATININE SERUM 1.01 MG/DL (0.60-1.30); GFR ESTIMATED 81
[2023-03-04 16:41] LABS: BUN/CREATININE RATIO 13
[2023-03-04 16:42] LABS: SALICYLATE < 5.0 MG/DL (5.0-20.0)
[2023-03-04 16:43] LABS: ALANINE AMINOTRANSFERASE 15 U/L (0-55)
[2023-03-04] MEDS: NS IV 1000 ML 1,000 ML IV SCH (16:57)
[2023-03-04 17:00] VITALS: BP 133/76
[2023-03-04 17:05] LABS: ACETAMINOPHEN < 10 UG/ML (10-30)
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
[2023-03-04 19:31] VITALS: BP 122/73
[2023-03-04 21:10] VITALS: BP 124/76
[2023-03-04 22:00] VITALS: BP 156/81
[2023-03-04] MEDS ORDERED: hydrOXYzine 25 MG CAPSULE PO PRN (22:00)
[2023-03-04 22:42] VITALS: BP 115/66
[2023-03-05] VITALS: BP 104/63
[2023-03-05] MEDS: NS IV 1000 ML 1,000 ML IV SCH ×2 (00:48→08:53)
[2023-03-05 02:28] LABS: AMPHETAMINE SCREEN, URINE NEGATIVE (NEGATIVE); BARBITURATE SCREEN URINE NEGATIVE (NEGATIVE); BENZODIAZEPINES SCREEN URINE POSITIVE (NEGATIVE); CANNABINOID SCREEN, URINE NEGATIVE (NEGATIVE); COCAINE SCREEN URINE NEGATIVE (NEGATIVE); HCG,QUALITATIVE URINE NEGATIVE (NEGATIVE); METHADONE STAT NEGATIVE (NEGATIVE); OPIATE SCREEN URINE POSITIVE (NEGATIVE); OXYCODONE STAT NEGATIVE (NEGATIVE); PROPOXYPHENE STAT NEGATIVE (NEGATIVE); TRICYCLIC ANTIDEPRESSANTS SCRE NEGATIVE (NEGATIVE)
[2023-03-05 04:30] VITALS: BP 101/66
[2023-03-05 07:34] VITALS: BP 108/61
[2023-03-05] MEDS ORDERED: DIAZ10TA3 PO (12:20)
[2023-03-05] MEDS ORDERED: ARIP10TA55 PO (12:20)
[2023-03-05] MEDS ORDERED: VENL150C3 PO (12:24)
[2023-03-05] MEDS ORDERED: ZOLP10TA PO (12:24)
[2023-03-05] MEDS ORDERED: VENL37.52 PO (12:24)
[2023-03-05 12:48] VITALS: BP 114/74
[2023-03-05 16:12] VITALS: BP 118/79
--- NOTE | 2023-03-05 16:24 | Discharge Summary ---
Discharge Summary Hospital Course Problems/Diagnosis: (1) Suicide attempt by drug overdose Status: Acute Assessment & Plan: Intentional overdose - Pt reports taking her own zolpidem, diazepam, and hydrocodone (prior medication from previous surgery) last night in an attempt to commit suicide, Initial CMP, CBC unremarkable , ASA, EtOH, and acetaminophen levels WNL Patient screened by [facility] and safety plan made, discharged home with aunt. Hospital Course Date of Admission: Mar 04, 2023 at 15:59 Admission Diagnosis : Family Physician/Provider: Date of Discharge: 03/05/23 Discharge Diagnosis: See problem list Hospital Course: See problem list Labs and Pending Lab Test: Laboratory Tests 03/05/23 02:10: Urine Test NEGATIVE, Urine Opiates Screen POSITIVEH, Urine Oxycodone Screen NEGATIVE, Urine Methadone Screen NEGATIVE, Urine Propoxyphene Screen NEGATIVE, Urine Barbiturates Screen NEGATIVE, Ur Tricyclic Antidepressants Screen NEGATIVE, Urine Phencyclidine Screen NEGATIVE, Urine Amphetamines Screen NEGATIVE, Urine Methamphetamines Screen NEGATIVE, Urine Benzodiazepines Screen POSITIVEH, Urine Cocaine Screen NEGATIVE, Urine Cannabinoids Screen NEGATIVE Home Meds Active Reported Ambien (Zolpidem Tartrate) 10 Mg Tablet 10 Mg PO HS PRN 1/2 TABLET TO 1 WHOLE TABLET (5-10MG) AT BEDTIME NEEDED FOR INSOMNIA Effexor Xr (Venlafaxine HCl) 150 Mg Cap.er.24h 150 Mg PO DAILY Effexor Xr (Venlafaxine HCl) 37.5 Mg Cap.er.24h 75 Mg PO DAILY PRN Diazepam 10 Mg Tablet 10 Mg PO Q12H PRN Aripiprazole 10 Mg Tablet 10 Mg PO DAILY Assessment/Pt DC Instructions Follow up with therapist tomorrow as scheduled. Follow up with Psychiatry prescribing provider within a week. Discharge Diet: No Restrictions Activity as Tolerated: Yes Discharge Physical Examination Allergies: Coded Allergies: albuterol (Verified Allergy, Severe, DROPS O2 LEVEL, INCREASED HR, 06/03/18) General Appearance: No Apparent Distress Respiratory: Lungs Clear, Normal Breath Sounds Cardiovascular: Regular Rate, Rhythm Gastrointestinal: Normal Bowel Sounds Skin: Warm/Dry Neurologic/Psychiatric: Alert, Oriented x3, Other (flat affect) RJ MEDINA MD Mar 05, 2023 16:24
== END 2023-03-05 16:47 | disposition home or self-care (01) ==
LOC: 4TH 15:59
PROVIDERS: ADMIT Family Medicine; ATTEND Family Medicine
DX: T42.6X2A Poisoning by other antiepileptic and sedative-hypnotic drugs, intentional self-harm, initial encounter (principal); T42.4X2A Poisoning by benzodiazepines, intentional self-harm, initial encounter; T40.2X2A Poisoning by other opioids, intentional self-harm, initial encounter
CPT/HCPCS: 80053; 80306; 84703; 85025; 96360; 96361 ×2; G0378; G0379; G0480 ×3; 36415; 80320; 80329

== ENCOUNTER → 2023-03-22 | Outpatient (CLI) | payer MEDICAID ==
[~2023-03-22] MED LIST changes: +ARIP10TA55 PO; +DIAZ10TA3 PO; +VENL150C3 PO; +VENL37.52 PO; +ZOLP10TA PO
--- NOTE | 2023-03-22 12:09 | Diagnostic Imaging Report ---
INDICATION: Left knee pain. AP and oblique and lateral views of the left knee are obtained. No fracture or acute bony abnormality is seen. There is no significant joint space narrowing. There is a question of a small joint effusion in the suprapatellar recess IMPRESSION: No acute fracture or dislocation. Question of small joint effusion in the suprapatellar recess. Dictated by: Dictated on workstation # [id number]
== END ==
LOC: RAD 11:17
PROVIDERS: ATTEND Nurse Practitioner Family
DX: M25.562 Pain in left knee (principal)
CPT/HCPCS: 73562

== ENCOUNTER 2023-04-15 16:39 | Outpatient (RCR) | payer MEDICAID | END 2023-04-19 | disposition home or self-care (01) | PROVIDERS: ATTEND Nurse Practitioner | DX: M23.232 Derangement of other medial meniscus due to old tear or injury, left knee (principal) ==

== ENCOUNTER 2023-05-19 13:50 | Outpatient (RCR) | payer MEDICAID | END 2023-05-20 | disposition home or self-care (01) | PROVIDERS: ATTEND Nurse Practitioner | DX: M23.232 Derangement of other medial meniscus due to old tear or injury, left knee (principal); J45.909 Unspecified asthma, uncomplicated ==

== ENCOUNTER 2023-05-29 15:20 | Outpatient (RCR) | payer MEDICAID | END 2023-05-29 15:45 | disposition home or self-care (01) | PROVIDERS: ATTEND Nurse Practitioner | DX: M23.232 Derangement of other medial meniscus due to old tear or injury, left knee (principal); R26.89 Other abnormalities of gait and mobility ==

== ENCOUNTER 2023-06-19 19:41 | Emergency (ER) | payer SELFPAY ==
[~2023-06-19] VITALS: Ht 167 cm; Wt 109.3 kg
--- NOTE | 2023-06-19 20:03 | ED Upper Extremity ---
General Stated Complaint: RT ARM LACERATION Source: patient Exam Limitations: no limitations (PATRICE CAST) History of Present Illness Date Seen by Provider: Jun 19, 2023 Time Seen by Provider: 19:58 Initial Comments Patient is a 23-year-old female presents ED with 3 cuts to her right forearm. This occurred around 6 PM. Increase stress at home cut herself with a X-Acto knife. One of the lacerations is slightly open about 4 cm. She has a history of cutting in the past due to stress. This was no intention to hurt herself. She did the cutting strictly due to family stress at home. She is wanting a laceration repair. She does not want to be evaluated by behavioral health she does see a therapist frequently. She has a scheduled appointment with her therapist tomorrow. She has no suicidal ,homicidal thoughts. Denies of any hallucinations. Denies any drug use or alcohol use. She states she feels comfortable going home. Her friend is here at bedside. Patient is up-to-date on her tetanus. (PATRICE CAST) Allergies and Home Medications Allergies Coded Allergies: albuterol (Verified Allergy, Severe, DROPS O2 LEVEL, INCREASED HR, 06/03/18) Patient Home Medication List Home Medication List Reviewed: Yes (PATRICE CAST) Aripiprazole (Aripiprazole) 10 Mg Tablet, 10 MG PO DAILY, (Reported) Entered as Reported by: JOHN RATLIFF on 03/05/23 1220 Diazepam (Diazepam) 10 Mg Tablet, 10 MG PO Q12H PRN for ANXIETY, (Reported) Entered as Reported by: JOHN RATLIFF on 03/05/23 1220 Venlafaxine HCl (Effexor Xr) 37.5 Mg Cap.er.24h, 75 MG PO DAILY PRN, (Reported) Entered as Reported by: JOHN RATLIFF on 03/05/23 1224 Venlafaxine HCl (Effexor Xr) 150 Mg Cap.er.24h, 150 MG PO DAILY, (Reported) Entered as Reported by: JOHN RATLIFF on 03/05/23 1224 Zolpidem Tartrate (Ambien) 10 Mg Tablet, 10 MG PO HS PRN for INSOMNIA, (Reported) Entered as Reported by: JOHN RATLIFF on 03/05/23 1224 Review of Systems Constitutional: No chills, No diaphoresis EENTM: No hearing loss, No ear pain, No blurred vision, No double vision Respiratory: No cough, No dyspnea on exertion Cardiovascular: No chest pain Gastrointestinal: No abdominal pain, No diarrhea, No nausea, No vomiting Genitourinary: No decreased output, No discharge, No dysuria, No frequency Musculoskeletal: muscle pain, muscle stiffness Skin: change in color (PATRICE CAST) All Other Systems Reviewed Negative Unless Noted: Yes (PATRICE CAST) Past Nblonlu-Yoofvn-Qlucwu Hx Immunizations Up To Date Tetanus Booster (TDap): Unknown PED Vaccines UTD: Yes First/Initial COVID19 Vaccinat: 08/10 Second COVID19 Vaccination Evan: 09/10 Third COVID19 Vaccination Date: 05/18/21 (PATRICE CAST) Seasonal Allergies Seasonal Allergies: Yes (PATRICE CAST) Past Medical History Surgery/Hospitalization HX: L labrum in shoulder repaired 5 weeks ago Hospitalized in November, December, and January for suicidal ideations. Surgeries: Yes (Bilat knees, left hand; EGD) Orthopedic Respiratory: Yes Asthma Cardiac: No Neurological: Yes Headaches /Migraines Reproductive Disorders: No Female Reproductive Disorders: Denies Sexually Transmitted Disease: No HIV/AIDS: No Genitourinary: No Gastrointestinal: Yes Gastroesophageal Reflux, Hiatal Hernia, Ulcer, Gall Bladder Disease Musculoskeletal: Yes (KNEES AND HAND SURGERY) Endocrine: No HEENT: No Loss of Vision: Denies Hearing Impairment: Denies Cancer: No Psychosocial: Yes Sleep Difficulties, Anxiety Integumentary: No Blood Disorders: No Adverse Reaction/Blood Tranf: No (N/A) (PATRICE CAST) Family Medical History Abdominal aortic aneurysm 19 MOTHER (MATERNAL GREAT GRANDFATHER) Alcoholism 19 FATHER (PARTENAL GRANDFATHER AND FATHER) Arthritis 19 FATHER Asthma 19 MOTHER G8 SISTER Cardiovascular disease 19 FATHER (GRANDFATHER) 19 MOTHER (MATERNAL GRANDFATHER) Cataracts 19 MOTHER (GRANDFATHER) Completed stroke 19 FATHER (GRANDMOTHER) Deafness or hearing loss Diabetes mellitus 19 MOTHER (GRANDFATHER) Drug abuse 19 FATHER (FATHER) Glaucoma 19 FATHER (GRANDFATHER) Hypercholesterolemia 19 FATHER (GRANDMOTHER) Hypertension 19 MOTHER (AUNTS) Kidney disease 19 MOTHER (GRANDFATHER) Myocardial infarction 19 FATHER (GRANDFATHER) 19 MOTHER (GREAT GRANDPARENTS) Respiratory disorder 19 FATHER (GRANDFATHER) Thyroid disease 19 MOTHER Tuberculosis 19 FATHER (GRANDFATHER) Physical Exam Vital Signs Vital Signs - First Documented 06/19/23 21:00 Temp 36.4 Pulse 104 Resp 20 B/P (MAP) 140/70 Pulse Ox 97 O2 Delivery Room Air (SHRUTI,JOSE ANTONIO K DO) Vital Signs Capillary Refill : (PATIRCE CAST) Height, Weight, BMI Height: 5'5.00" Weight: 200lbs. 0.0oz. 90.259694qo; 38.19 BMI Method:Stated General Appearance: WD/WN, no apparent distress HEENT: PERRL/EOMI, normal ENT inspection, TMs normal, pharynx normal Neck: non-tender, full range of motion, supple Cardiovascular: regular rate, rhythm, no edema, no gallop, no JVD Respiratory: chest non-tender, lungs clear, normal breath sounds, no respiratory distress, no accessory muscle use Gastrointestinal: normal bowel sounds, non tender, soft, no organomegaly Back: normal inspection, no CVA tenderness Shoulder: normal inspection, non-tender, no evidence of injury Elbow/Forearm: normal ROM, soft tissue tenderness (Laceration to right volar forearm around 4 cm. Adipose involvement. 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 1 laceration 4 cm in length with adipose involvement.) (PATRICE CAST) Procedures/Interventions Wound Location: Upper Extremities Other Wound Location right wrist Wound Length (cm): 4 Wound's Depth, Shape: superficial, sub Q Wound Explored: clean Irrigated w/ Saline (ccs): 200 Betadine Prep?: Yes Anesthesia: 1% Lidocaine Volume Anesthetic (ccs): 5 Suture: Ethlion Suture Size: 4-0 Number of Sutures: 8 Layer Closure?: 1 Number Deep Layer Sutures: 0 Sterile Dressing Applied?: Yes (PATRICE CAST) Progress/Results/Core Measures Results/Orders Lab Results Laboratory Tests Test 06/19/23 20:47 Range/Units White Blood Count 11.6 H 4.3-11.0 10^3/uL Red Blood Count 5.22 H 3.80-5.11 10^6/uL Hemoglobin 14.6 11.5-16.0 g/dL Hematocrit 45 35-52 % Mean Corpuscular Volume 86 80-99 fL Mean Corpuscular Hemoglobin 28 25-34 pg Mean Corpuscular Hemoglobin Concent 32 32-36 g/dL Red Cell Distribution Width 12.9 10.0-14.5 % Platelet Count 372 130-400 10^3/uL Mean Platelet Volume 11.5 9.0-12.2 fL Immature Granulocyte % (Auto) 0 % Neutrophils (%) (Auto) 90 H 42-75 % Lymphocytes (%) (Auto) 8 L 12-44 % Monocytes (%) (Auto) 2 0-12 % Eosinophils (%) (Auto) 0 0-10 % Basophils (%) (Auto) 0 0-10 % Neutrophils # (Auto) 10.4 H 1.8-7.8 10^3/uL Lymphocytes # (Auto) 0.9 L 1.0-4.0 10^3/uL Monocytes # (Auto) 0.2 0.0-1.0 10^3/uL Eosinophils # (Auto) 0.0 0.0-0.3 10^3/uL Basophils # (Auto) 0.1 0.0-0.1 10^3/uL Immature Granulocyte # (Auto) 0.0 0.0-0.1 10^3/uL Neutrophils % (Manual) 89 % Lymphocytes % (Manual) 10 % Monocytes % (Manual) 1 % Blood Morphology Comment NORMAL (JOSE ANTONIO BAHENA DO) Departure Communication (PCP) Patient with a 4 cm laceration to right volar forearm. She does have 2 other superficial lacerations. Up-to-date her tetanus. Sutures were needed. eight 4- 0 Ethilon sutures were placed here in the ED without difficulties. Normal range of motion of the wrist and digit. Increase stress with a history of cutting in the past. She had no intention to hurt herself but was wanting to relieve stress. She does see a therapist. I did recommend and offered behavioral he alth assessment but she states this was no intention to hurt herself and she wants to go home but does want the laceration repaired. She denies any drug use or alcohol use. No hallucinations. No homicidal thoughts. Did continue recommending a behavioral health assessment again but she continue to refusing and is wanting to leave. She states she has a history of cutting due to stress. Denies of any suicidal thoughts. Remove sutures in 10 days. Topical Neosporin twice a day. If increased redness or swelling to return back to ED. (PATRICE CAST) Impression Primary Impression: Laceration Disposition: HOME, SELF-CARE Condition: Stable Departure-Patient Inst. Decision time for Depature: 20:49 (PATRICE CAST) Referrals: DRU ARROYO MD (PCP) Primary Care Physician RJ MEDINA MD (Family) Primary Care Physician Patient Instructions: Laceration Repair Add. Discharge Instructions: Topical Neosporin twice a day. If increased redness or swelling to return back to ED. Remove sutures in 10 days. Follow-up your therapist tomorrow. ATTENDING PHYSICIAN NOTE: I WAS PHYSICALLY PRESENT ER PHYSICIAN, BUT I WAS NOT INVOLVED IN ANY DECISION MAKING OR ANY CARE OF THIS PATIENT, AND I AM NOT COLLABORATING PHYSICIAN. (JOSE ANTONIO BAHENA DO) PATRICE CAST Jun 19, 2023 20:03 JOSE ANTONIO BAHENA DO Jun 20, 2023 18:22
[2023-06-19] MEDS ORDERED: LIDOCAINE 1% INJ 20 ML VIAL INJ ONE (20:15)
[2023-06-19 20:54] LABS: BASOPHILS # (AUTO) 0.1 10^3/uL (0.0-0.1); BASOPHILS % (AUTO) 0 % (0-10); EOSINOPHILS % (AUTO) 0 % (0-10); HEMATOCRIT 45 % (35-52); HEMOGLOBIN 14.6 g/dL (11.5-16.0); LYMPHOCYTES # (AUTO) 0.9 10^3/uL (1.0-4.0); LYMPHOCYTES % (AUTO) 8 % (12-44); MEAN CORPUSCULAR HEMOGLOBIN 28 pg (25-34); MEAN CORPUSCULAR HGB CONC 32 g/dL (32-36); MEAN CORPUSCULAR VOLUME 86 fL (80-99); MEAN PLATELET VOLUME 11.5 fL (9.0-12.2); MONOCYTES # (AUTO) 0.2 10^3/uL (0.0-1.0); MONOCYTES % (AUTO) 2 % (0-12); NEUTROPHILS # (AUTO) 10.4 10^3/uL (1.8-7.8); NEUTROPHILS % (AUTO) 90 % (42-75); PLATELET COUNT 372 10^3/uL (130-400); WHITE BLOOD COUNT 11.6 10^3/uL (4.3-11.0)
[2023-06-19 21:07] VITALS: BP 140/87
[2023-06-19 21:41] LABS: LYMPHOCYTES % (MANUAL) 10 %; MONOCYTES % (MANUAL) 1 %; NEUTROPHILS % (MANUAL) 89 %; RBC MORPH NORMAL
== END 2023-06-19 20:58 | disposition home or self-care (01) ==
LOC: EDUNIT# 19:41 → ER 19:44
DX: S51.811A Laceration without foreign body of right forearm, initial encounter (principal); X78.1XXA Intentional self-harm by knife, initial encounter; Y92.009 Unspecified place in unspecified non-institutional (private) residence as the place of occurrence of the external cause
CPT/HCPCS: 36415; 85007; 85025; 85027; 93005